=== PATIENT | male | born 1950 | race Caucasian/White ===

== ENCOUNTER 2022-02-10 13:01 | Inpatient (IN) | payer MEDICARE, OTHER, SELFPAY ==
[2022-02-10] VITALS (10 sets, daily range): BP systolic 114–203; BP diastolic 78–124; PULSE 67–76; RESP 12–18; TEMP 36.2–37.4; O2SAT 95–98; BMI 28.7
[2022-02-10 14:09] LABS: Appearance Urine Clear (Clear); Bilirubin Urine 1+ (Negative); Blood Urine Trace-intact (Negative); Color Urine Yellow (Yellow); Glucose Urine Negative (Negative); Ketones Urine 2+ (Negative); Leukocyte Esterase Urine Negative (Negative); Nitrite Urine Negative (Negative); Protein Urine 2+ (Negative); Specific Gravity Urine 1.025 (1.000-1.030)
[2022-02-10] MEDS: 0.9 % SODIUM CHLORIDE 1000 ml 1,000 ML IV ×2 (14:15→23:20)
[2022-02-10] MEDS: KETOROLAC 15 MG/ML inj IVP (14:16)
[2022-02-10] MEDS: MORPHINE 4 MG/ML INJ IVP (14:17)
[2022-02-10] MEDS: ONDANSETRON 2 MG/ML inj 4 MG IVP (14:17)
[2022-02-10 14:18] LABS: Basophils Percent Auto 0.1 % (0.0-3.0); Hemoglobin* 17.8 gm/dL (13.5-17.5); Immature Granulocytes Abs Auto 0.04 K/uL (0.00-0.30); Lymphocytes Percent Auto 4.1 % (20-44); Mean Corpuscular HGB Conc 34 gm/dL (32-36); Mean Corpuscular Hemoglobin 30 pg (26-34); Mean Corpuscular Volume 90 fL (80-100); Monocytes Percent Auto 5.8 % (0.0-11.0); Neutrophils Percent Auto 89.8 % (42.0-72.0); Platelet Count* 312 K/uL (140-440); RDW Coefficient of Variation % 12.2 % (11.5-15.5); Red Blood Count 5.91 m/uL (4.30-5.90); White Blood Count* 17.66 K/uL (4.50-11.00)
[2022-02-10 14:19] LABS: RBC Urine 0-2 (0-2)
[2022-02-10 14:20] LABS: Amorphous Sediment Urine Few; Bacteria Urine Few; Mucus Urine Few; Squamous Epithelial Cell Urine Few (None-Few); WBC Urine 0-2 (0-5)
[2022-02-10 14:21] LABS: Lactate* 2.4 mmol/L (0.5-1.9); Slide Review Reflex No
[2022-02-10 14:39] LABS: Albumin* 4.7 g/dL (3.3-5.0); Chloride* 103 mmol/L (96-114)
[2022-02-10 14:40] LABS: Potassium* 4.2 mmol/L (3.6-5.1); Sodium* 140 mmol/L (135-149)
--- NOTE | 2022-02-10 14:40 | CRLHL7_ITS ---
For Patients: As a result of the Century Cures Act, medical imaging exams and procedure reports are released immediately into your electronic medical record. You may view this report before your referring provider. If you have questions, please contact your health care provider. INDICATION: ab pain, nausea/vomitting, multiple hyperechoic shadowing mobile foci, slightly thickened gb wall, fatty heterogeneous liver limited exam due to gas/body habitus HISTORY: Abdominal pain. Nausea. Vomiting. COMPARISON: None. TECHNIQUE: Ultrasound of the abdomen limited. FINDINGS: The pancreas is normal where visualized. No peripancreatic fluid collections are seen. The IVC and abdominal aorta are normal on grayscale imaging. There is no solid hepatic mass. The liver measures 17.6 cm in length. No perihepatic ascites. No dilation of intrahepatic biliary radicals. Questionable steatosis in the liver. The right kidney measures 11.4 cm in length. There is no hydronephrosis, solid mass, or perinephric fluid collection. Stones in the gallbladder lumen. These appear mobile, with posterior acoustic shadowing. The gallbladder wall measures 5 mm. No sonographic Gomes`s sign. No pericholecystic fluid collection. The common bile duct measures approximately 3 mm. IMPRESSION: 1. Cholelithiasis with mild gallbladder wall thickening. 2. No additional secondary signs for cholecystitis. Negative sonographic Gomes`s sign. No pericholecystic fluid or intramural edema. 3. Normal caliber biliary tree. Dictated by Harshad Chambers MD @ 02/10/2022 5:17:49 PM Dictated by: Harshad Chambers MD @ 02/10/2022 17:17:59 (Electronically Signed)
[2022-02-10 14:42] LABS: Aspartate Amino Transferase* 35 U/L (12-35); Bilirubin Direct* 0.3 mg/dL (0.0-0.5); Bilirubin Total* 1.2 mg/dL (0.1-1.5); Carbon Dioxide* 27 mmol/L (20-32); Est. Creatinine Clearance* 68.94; Estimated Glomerular Filt Rate 80 ml/min; Total Protein* 7.6 g/dL (6.0-8.3)
[2022-02-10 14:43] LABS: Alanine Aminotransferase* 23 U/L (4-50); Alkaline Phosphatase* 120 U/L (40-150); Blood Urea Nitrogen* 15 mg/dL (7-30); Calcium* 9.6 mg/dL (8.4-10.6); Glucose* 179 mg/dL (60-115); Lipase* 60 U/L (23-300)
[2022-02-10 14:45] LABS: C Reactive Protein* 0.6 mg/dL (0.5-1.0)
--- NOTE | 2022-02-10 15:37 | ED.GENADULT ---
HPI - General Adult General Date Seen: 02/10/22 Chief complaint: Abdominal Pain Stated complaint: Abdominal Pain Time Seen by Provider: 02/10/22 13:33 Source: patient History of Present Illness HPI narrative: Patient is a 71-year-old male who presents with abdominal pain and vomiting which awakened him at a about 430 in the morning. His pain is primarily central abdomen although it spreads out a little to either side. He rates it as moderate to severe in intensity. It feels slightly better after he vomits but then comes back. He has not had any diarrhea, in fact he feels he has been a little constipated. No black or bloody stools. Has not vomited any blood. Denies fevers, chest pain, shortness of breath. Has not had any urinary symptoms. He tells me he has had 2 similar episodes over the past several months, but they were brief in duration. One time he just had nausea, 1 time he vomited once, both times the symptoms resolved over an hour or two. This time, pain has persisted and he presents to the emergency department 8 hours or so after the symptoms started. He has not tried any medications at home, and pain has been constant since it started. Related Data Home Medications Medication Instructions Recorded Confirmed No Known Home Medications 02/10/22 02/10/22 Allergies Allergy/AdvReac Type Severity Reaction Status Date / Time No Known Drug Allergies Allergy Verified 02/10/22 13:14 Review of Systems Status of ROS: Reports: 10 or more systems reviewed and unremarkable except as noted in History and below [facility] Social History Smoking Status: Never smoker Do you use any of these nicotine containing products: None How often do you have a drink containing alcohol: 2-3 times a week How often do you have six or more drinks on one occasion: Never AUDIT-C Alcohol total score: 3 Non-prescribed substance use: denies use Exam Narrative: Exam Narrative: Vital signs as noted below. In general, an alert, nontoxic male, looks mildly uncomfortable. Head: Normocephalic, atraumatic. Eyes: Pupils are equal reactive. Extraocular movements are full. Conjunctivae are anicteric. ENT: Mucous membranes are slightly dry. Neck: Supple without lymphadenopathy. Heart: Regular rate and rhythm. No murmur or rub. Lungs: Clear bilaterally. No increased work of breathing, crackles or wheezes. Abdomen: Nondistended. Upper abdominal tenderness, greatest in the right upper quadrant. Diffuse abdominal tenderness less so. Guarding in the right upper quadrant. Remainder of the abdomen soft. Extremities: Well perfused. No edema. No calf tenderness. Pulses intact. Neurologic: Patient is alert and oriented to person and place. Speech is fluent. Face is symmetric. Moves all extremities equally. Affect: Normal. Skin: Warm and dry. Well perfused. Const: Vital Signs, click to edit/add: Vital Signs - 24 hr 02/10/22 13:14 02/10/22 14:14 Temperature 97.1 F L Pulse Rate [Left P ulse Oximeter] 76 67 Respiratory Rate 18 14 Blood Pressure [Ri ght Upper Arm] 203/124 H 198/113 H Pulse Oximetry 98 98 Documenting provider has reviewed patient's vital signs: yes Course Course Hospital Course: Following initial evaluation, an IV was placed and he was given a L of normal saline, 4 mg morphine, 15 mg of Toradol, 4 mg of Zofran Feels improved. [place] [address]. CRP normal. LFTs normal, basic metabolic panel normal aside from a blood sugar of 179. Lactate is mildly elevated at 2.4. Urine is notable for 2+ ketones, bilirubin 1+ but serum bilirubin is normal, this is likely secondary to urine concentration. I did do a bedside ultrasound and he does have gallstones, formal right upper quadrant ultrasound is pending at this time. Diagnostic considerations include bowel obstruction, cholecystitis, appendicitis, diverticulitis, a nephritis, perforated viscus, gastritis, peptic ulcer disease, colitis, mesenteric ischemia, aortic pathology less likely. LFTs and lipase are normal, Formal right upper quadrant ultrasound read as following:IMPRESSION: 1. Cholelithiasis with mild gallbladder wall thickening. 2. No additional secondary signs for cholecystitis. Negative sonographic Gomes`s sign. No pericholecystic fluid or intramural edema. 3. Normal caliber biliary tree. No evidence on ultrasound of choledocholithiasis, lipase and LFTs are reassuring the normal. He has persistent right upper quadrant tenderness on exam however, elevated white blood cell count and history which is suggestive of biliary colic/cholecystitis. I did talk with her surgeon and she recommends admission with cholecystectomy tomorrow. I talked with the hospitalist, patient has had Zofran 3.375 mg IV. He will be admitted to the hospitalist service. Vital Signs Vital signs: Initial Vital Signs Temperature 97.1 F L 02/10/22 13:14 Temperature Source Temporal Artery Scan 02/10/22 13:14 Pulse Rate 76 02/10/22 13:14 Pulse Rhythm 02/10/22 13:14 Respiratory Rate 18 02/10/22 13:14 Blood Pressure 203/124 H 02/10/22 13:14 Blood Pressure Mean 150 02/10/22 13:14 Blood Pressure Position Sitting 02/10/22 13:14 Pulse Oximetry 98 02/10/22 13:14 Oxygen Delivery Method 02/10/22 13:14 Vital Signs Temperature 97.1 F L 02/10/22 13:14 Pulse Rate 76 02/10/22 13:14 Respiratory Rate 18 02/10/22 13:14 Blood Pressure 203/124 H 02/10/22 13:14 Pulse Oximetry 98 02/10/22 13:14 Temperature 97.1 F L 02/10/22 13:14 Pulse Rate 67 02/10/22 14:14 Respiratory Rate 14 02/10/22 14:14 Blood Pressure 198/113 H 02/10/22 14:14 Pulse Oximetry 98 02/10/22 14:14 Medical Decision Making Lab Data Labs: Lab Results 02/10/22 02/10/22 02/10/22 Range/Units 14:00 14:10 14:10 WBC 17.66 H (4.50-11.00) K/uL RBC 5.91 H (4.30-5.90) m/uL Hgb 17.8 H (13.5-17.5) gm/dL Hct 53.0 (37.0-53.0) % MCV 90 (80-100) fL MCH 30 (26-34) pg MCHC 34 (32-36) gm/dL RDW Coeff of Jonah 12.2 (11.5-15.5) % Plt Count 312 (140-440) K/uL Neut % (Auto) 89.8 H (42.0-72.0) % Lymph % (Auto) 4.1 L (20-44) % [place] % (Auto) 5.8 (0.0-11.0) % Eos % (Auto) 0.0 (0.0-7.0) % Baso % (Auto) 0.1 (0.0-3.0) % Neut # (Auto) 15.90 H (1.7-7.0) K/uL Lymph # (Auto) 0.70 L (0.90-2.90) K/uL [place] # (Auto) 1.00 H (0.00-0.90) K/UL Eos # (Auto) 0.00 (0.00-0.50) K/uL Baso # (Auto) 0.00 (0.00-0.30) K/uL Abs Immat Gran (auto) 0.04 (0.00-0.30) K/uL Sodium 140 (135-149) mmol/L Potassium 4.2 (3.6-5.1) mmol/L Chloride 103 (96-114) mmol/L Carbon Dioxide 27 (20-32) mmol/L BUN 15 (7-30) mg/dL Creatinine 1.0 (0.5-1.5) mg/dL Estimated Creat Clear 68.94 Estimated GFR 80 ml/min Glucose 179 H (60-115) mg/dL Lactate (0.5-1.9) mmol/L Calcium 9.6 (8.4-10.6) mg/dL Total Bilirubin 1.2 (0.1-1.5) mg/dL Direct Bilirubin 0.3 (0.0-0.5) mg/dL AST 35 (12-35) U/L ALT 23 (4-50) U/L Alkaline Phosphatase 120 (40-150) U/L C-Reactive Protein 0.6 (0.5-1.0) mg/dL Total Protein 7.6 (6.0-8.3) g/dL Albumin 4.7 (3.3-5.0) g/dL Lipase 60 (23-300) U/L Urine Color Yellow (Yellow) Urine Appearance Clear (Clear) Urine pH 7.0 (5.0-8.5) Ur Specific [place] 1.025 (1.000-1.030) Urine Protein 2+ A (Negative) Urine Glucose (UA) Negative (Negative) Urine Ketones 2+ A (Negative) Urine Blood Trace-intact A (Negative) Urine Nitrite Negative (Negative) Urine Bilirubin 1+ A (Negative) Urine Urobilinogen 1.0 (0.2-1.0) Ur Leukocyte Esterase Negative (Negative) Urine RBC 0-2 (0-2) Urine WBC 0-2 (0-5) Ur Squamous Epith Cells Few (None-Few) Amorphous Sediment Few A (None) Urine Bacteria Few A (None) Urine Mucus Few A (None) 02/10/22 Range/Units 14:10 WBC (4.50-11.00) K/uL RBC (4.30-5.90) m/uL Hgb (13.5-17.5) gm/dL Hct (37.0-53.0) % MCV (80-100) fL MCH (26-34) pg MCHC (32-36) gm/dL RDW Coeff of Jonah (11.5-15.5) % Plt Count (140-440) K/uL Neut % (Auto) (42.0-72.0) % Lymph % (Auto) (20-44) % [place] % (Auto) (0.0-11.0) % Eos % (Auto) (0.0-7.0) % Baso % (Auto) (0.0-3.0) % Neut # (Auto) (1.7-7.0) K/uL Lymph # (Auto) (0.90-2.90) K/uL [place] # (Auto) (0.00-0.90) K/UL Eos # (Auto) (0.00-0.50) K/uL Baso # (Auto) (0.00-0.30) K/uL Abs Immat Gran (auto) (0.00-0.30) K/uL Sodium (135-149) mmol/L Potassium (3.6-5.1) mmol/L Chloride (96-114) mmol/L Carbon Dioxide (20-32) mmol/L BUN (7-30) mg/dL Creatinine (0.5-1.5) mg/dL Estimated Creat Clear Estimated GFR ml/min Glucose (60-115) mg/dL Lactate 2.4 H (0.5-1.9) mmol/L Calcium (8.4-10.6) mg/dL Total Bilirubin (0.1-1.5) mg/dL Direct Bilirubin (0.0-0.5) mg/dL AST (12-35) U/L ALT (4-50) U/L Alkaline Phosphatase (40-150) U/L C-Reactive Protein (0.5-1.0) mg/dL Total Protein (6.0-8.3) g/dL Albumin (3.3-5.0) g/dL Lipase (23-300) U/L Urine Color (Yellow) Urine Appearance (Clear) Urine pH (5.0-8.5) Ur Specific [place] (1.000-1.030) Urine Protein (Negative) Urine Glucose (UA) (Negative) Urine Ketones (Negative) Urine Blood (Negative) Urine Nitrite (Negative) Urine Bilirubin (Negative) Urine Urobilinogen (0.2-1.0) Ur Leukocyte Esterase (Negative) Urine RBC (0-2) Urine WBC (0-5) Ur Squamous Epith Cells (None-Few) Amorphous Sediment (None) Urine Bacteria (None) Urine Mucus (None) Discharge Plan Discharge Prescriptions: No Action No Known Home Medications 0RF Follow Up/Referrals: Juan C Tapia MD [Primary Care Provider] -
[2022-02-10] MEDS: PIPERACILLIN/TAZOBACTAM 3.375 GM in 0.9 % SODIUM CHLORIDE Mini-bag 100 ML IVPB (17:46)
--- NOTE | 2022-02-10 18:39 | W.PC.EDHO ---
Primary Language: Preferred Language: Orientation Status: [x] Alert & Oriented [] Slight Confusion [] Known Dx Dementia Transfers By: [x] Assist of 1 [] Assist of 2 [] Lift Active Medications Discontinued Medications Generic Name Dose Route Start Last Admin Trade Name Agapito PRN Reason Stop Dose Admin Sodium Chloride 1,000 mls @ 1,000 mls/hr 02/10/22 13:45 02/10/22 15:24 0.9 % Sodium Chloride 1000 Ml IV 02/10/22 14:44 Infused .Q1H DAVI Infusion Piperacillin Sod/Tazobactam 100 mls @ 100 mls/hr 02/10/22 17:30 02/10/22 17:46 Sod 3.375 gm/ Sodium Chloride IVPB 02/10/22 17:31 100 mls/hr ONCE ONE Administration Ketorolac Tromethamine 15 mg 02/10/22 13:41 02/10/22 14:16 Ketorolac 15 Mg/Ml Inj IVP 02/10/22 13:42 15 mg ONCE ONE Administration Morphine Sulfate 4 mg 02/10/22 13:41 02/10/22 14:17 Morphine 4 Mg/Ml Inj IVP 02/10/22 13:42 4 mg ONCE ONE Administration Ondansetron HCl 4 mg 02/10/22 13:41 02/10/22 14:17 Ondansetron 2 Mg/Ml Inj IVP 02/10/22 13:42 4 mg ONCE ONE Administration Description of Symptoms ED Triage Present Problem mid to low abd pain x 18 hours some vomiting, no Description diarrhea, no fevers. Female History Patient No Pain Pain Description [lower Burning abdomen] Pain Intensity [lower abdomen] 2 Pain Intensity 2 Pain Intensity 2 Pain Intensity 2 Pain Intensity 2 Pain Intensity 2 Pain Intensity 2 Pain Intensity 2 Pain Intensity 7 Pain Intensity 7 Pain Intensity 8 Pain Scale Used [lower abdomen Numeric (1 - 10) ] Pain Scale Used Numeric (1 - 10) Pain Scale Used Numeric (1 - 10) Pain Scale Used Numeric (1 - 10) Pain Scale Used Numeric (1 - 10) Pain Scale Used Numeric (1 - 10) Pain Scale Used Numeric (1 - 10) Pain Scale Used Numeric (1 - 10) Pain Scale Used Numeric (1 - 10) Pain Scale Used Numeric (1 - 10) Pain Scale Used Numeric (1 - 10) IV Insertion/Site Date of IV Line Insertion [ 02/10/22 left anticubital] Oxygen Administration Pulse Oximetry 98 Pulse Oximetry 98 Oxygen Delivery Method Room Air Oxygen Delivery Method Room Air Cardiac Monitoring EKG Method 12 Lead
[2022-02-10 18:46] LABS: SARS PCR* Negative SARS-CoV-2 (Negative)
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
[2022-02-10] MEDS: AMLODIPINE 10 MG TABLET PO (20:28)
[2022-02-10] MEDS: ONDANSETRON ODT 4 MG TAB PO (20:28)
[2022-02-10 20:55] LABS: Lactate* 2.3 mmol/L (0.5-1.9)
[2022-02-10] MEDS: LACTATED RINGERS 1000 ML 500 ML IV (22:38)
[2022-02-11] VITALS (15 sets, daily range): BP systolic 75–138; BP diastolic 50–81; PULSE 67–86; RESP 18–20; TEMP 36.4–37.1; O2SAT 90–98
[2022-02-11] MEDS: PIPERACILLIN/TAZOBACTAM 3.375 GM in 0.9 % SODIUM CHLORIDE Mini-bag 100 ML IVPB ×2 (00:20→06:40)
[2022-02-11] MEDS: LACTATED RINGERS 1000 ML 1,000 ML 125 ML IV (01:13)
[2022-02-11 06:27] LABS: Basophils Percent Auto 0.1 % (0.0-3.0); Eosinophils Percent Auto 0.2 % (0.0-7.0); Hemoglobin* 16.3 gm/dL (13.5-17.5); Immature Granulocytes Abs Auto 0.03 K/uL (0.00-0.30); Lymphocytes Percent Auto 9.6 % (20-44); Mean Corpuscular HGB Conc 33 gm/dL (32-36); Mean Corpuscular Hemoglobin 30 pg (26-34); Mean Corpuscular Volume 91 fL (80-100); Monocytes Percent Auto 10.8 % (0.0-11.0); Neutrophils Percent Auto 79.1 % (42.0-72.0); Platelet Count* 251 K/uL (140-440); RDW Coefficient of Variation % 12.3 % (11.5-15.5); Red Blood Count 5.38 m/uL (4.30-5.90); White Blood Count* 16.75 K/uL (4.50-11.00)
[2022-02-11 06:29] LABS: Slide Review Reflex No
[2022-02-11 06:34] LABS: Albumin* 3.7 g/dL (3.3-5.0); Chloride* 106 mmol/L (96-114); Potassium* 4.1 mmol/L (3.6-5.1); Sodium* 135 mmol/L (135-149)
[2022-02-11 06:36] LABS: Creatinine* 1.1 mg/dL (0.5-1.5); Est. Creatinine Clearance* 62.68; Estimated Glomerular Filt Rate 71 ml/min
[2022-02-11 06:37] LABS: Alanine Aminotransferase* 30 U/L (4-50); Alkaline Phosphatase* 87 U/L (40-150); Aspartate Amino Transferase* 40 U/L (12-35); Blood Urea Nitrogen* 12 mg/dL (7-30); Carbon Dioxide* 25 mmol/L (20-32); Glucose* 142 mg/dL (60-115); Total Protein* 6.2 g/dL (6.0-8.3)
[2022-02-11 06:38] LABS: Calcium* 8.4 mg/dL (8.4-10.6)
--- NOTE | 2022-02-11 06:46 | PC.NURSE ---
Addendum entered by Maile Benjamin RN 02/11/22 08:02: [employer] agrees with documentation and cares of pt by above internal communications writer. Original Note: [id number] pt arrived to unit at 1920 from ED following episode of N,V, with abdominal pain. Dx cholecystitis. IV patent, CDI left AC. One dose of zofran given per pt request. Blood pressure on admission was 156-185/107-112. Order of amlodipine 10mg once followed by 5mg daily starting 02/10. BP this morning 138/81. All other vitals stable, pt AxO x3, declined any meds for abdominal pain. Score 3/10. Pt has a right lower leg prosthetic that pt removes by self, walks independently. NPO after midnight for surgery at 0702/11 for removal of gall stones.
[2022-02-11 06:57] LABS: C Reactive Protein* 12.9 mg/dL (0.5-1.0)
--- NOTE | 2022-02-11 07:19 | P.GSCN_ITS ---
History of Present Illness Consult details Consult date: 02/11/22 Narrative: 71-year-old male presented to emergency room with crampy abdominal pain that was located in periumbilical region and just above it. Patient states that the pain woke him up at night at 4 in the morning to yesterday. Patient had multiple episodes of vomiting. He had 2 similar episodes of pain in the last 3 months. Those episodes were related to ED fatty food. Patient also felt like he was constipated. His last bowel movement was on Saturday. In the emergency room he was found to have an elevated WBC of 17.6. His liver function tests and lipase were normal. An abdominal ultrasound was obtained that showed cholelithiasis with gallbladder wall of 5 mm thick. His common bile duct was 3 mm. Review of Systems Narrative: General: no fevers HENT: no problems swallowing CV: no shortness of breath Resp: no cough GI: see above Skin: no new rashes Musculoskeletal: no back pain Neuro: patient wear left BKA prosthesis Psyche: no depression, no anxiety PFSH PFSH Medical History (Updated 02/11/22 @ 07:20 by Samantha Rain MD) Basal cell carcinoma Cataract History of left below knee amputation Hypertension Surgical History (Updated 02/11/22 @ 07:20 by Samantha Rain MD) S/P BKA (below knee amputation) unilateral Social History (Updated 02/11/22 @ 07:21 by Samantha Rain MD) Narrative: Patient denies smoking. He lives with his daughter and her family. Highest level of school completed/degree received: Associate degree: occupational, technical, vocational program Smoking Status: Never smoker Do you use any of these nicotine containing products: None Second hand tobacco smoke exposure: Yes (year ) How often do you have a drink containing alcohol: 2-3 times a week Alcohol type: beer, wine and hard liquor How often do you have six or more drinks on one occasion: Never AUDIT-C Alcohol total score: 3 Non-prescribed substance use: denies use Caffeine: Yes (ice tea) service: Yes Meds Home Medications and Allergies Allergies Allergy/AdvReac Type Severity Reaction Status Date / Time cefazolin AdvReac Intermediate Verified 02/11/22 07:44 metronidazole AdvReac Intermediate Verified 02/11/22 07:45 Exam Narrative: Exam Narrative: General appearance: Alert, cooperative, and in no distress Pulmonary: Chest symmetric, lungs clear bilaterally Cardiovascular Heart: Regular rate and rhythm, S1, S2, no murmurs/rubs/gallops Gastrointestinal Abdominal: soft, not distended, tender to palpation in epigastrium and medial right upper quadrant with involuntary guarding. Negative Gomes sign. Skin: Normal skin color, texture, and turgor. No rashes or lesions. Psychiatric: Alert, cooperative, normal affect. Const: Vital Signs, click to edit/add: Vital Signs - 24 hr 02/10/22 13:14 02/10/22 14:14 02/10/22 17:00 Temperature 97.1 F L Pulse Rate [Left P ulse Oximeter] 76 67 69 Pulse Rate [Right Pulse Oximeter] Respiratory Rate 18 14 14 Blood Pressure [Le ft Arm] Blood Pressure [Ri ght Arm] Blood Pressure [Ri ght Upper Arm] 203/124 H 198/113 H 114/78 Pulse Oximetry 98 98 95 02/10/22 17:30 02/10/22 18:00 02/10/22 18:30 Temperature Pulse Rate [Left P ulse Oximeter] 72 71 73 Pulse Rate [Right Pulse Oximeter] Respiratory Rate 14 18 18 Blood Pressure [Le ft Arm] Blood Pressure [Ri ght Arm] Blood Pressure [Ri ght Upper Arm] 182/106 H 193/119 H 159/90 H Pulse Oximetry 98 98 97 02/10/22 19:00 02/10/22 19:23 02/10/22 19:38 Temperature 99.4 F 99.4 F Pulse Rate [Left P ulse Oximeter] 70 Pulse Rate [Right Pulse Oximeter] 76 76 Respiratory Rate 18 18 18 Blood Pressure [Le ft Arm] 176/107 H 176/107 H Blood Pressure [Ri ght Arm] Blood Pressure [Ri ght Upper Arm] 159/84 H Pulse Oximetry 97 97 97 02/10/22 23:00 02/11/22 03:00 Temperature 98.7 F Pulse Rate [Left P ulse Oximeter] Pulse Rate [Right Pulse Oximeter] 72 76 Respiratory Rate 12 Blood Pressure [Le ft Arm] 156/92 H Blood Pressure [Ri ght Arm] 138/81 Blood Pressure [Ri ght Upper Arm] Pulse Oximetry 97 97 Results Labs Labs: Abnormal lab results 02/10/22 02/10/22 02/10/22 Range/Units 14:00 14:10 14:10 WBC 17.66 H (4.50-11.00) K/uL RBC 5.91 H (4.30-5.90) m/uL Hgb 17.8 H (13.5-17.5) gm/dL Neut % (Auto) 89.8 H (42.0-72.0) % Lymph % (Auto) 4.1 L (20-44) % Neut # (Auto) 15.90 H (1.7-7.0) K/uL Lymph # (Auto) 0.70 L (0.90-2.90) K/uL [place] # (Auto) 1.00 H (0.00-0.90) K/UL Glucose 179 H (60-115) mg/dL Lactate (0.5-1.9) mmol/L Total Bilirubin (0.1-1.5) mg/dL AST (12-35) U/L C-Reactive Protein (0.5-1.0) mg/dL Urine Protein 2+ A (Negative) Urine Ketones 2+ A (Negative) Urine Blood Trace-intact A (Negative) Urine Bilirubin 1+ A (Negative) Amorphous Sediment Few A (None) Urine Bacteria Few A (None) Urine Mucus Few A (None) 02/10/22 02/10/22 02/11/22 Range/Units 14:10 20:50 06:05 WBC 16.75 H (4.50-11.00) K/uL RBC (4.30-5.90) m/uL Hgb (13.5-17.5) gm/dL Neut % (Auto) 79.1 H (42.0-72.0) % Lymph % (Auto) 9.6 L (20-44) % Neut # (Auto) 13.20 H (1.7-7.0) K/uL Lymph # (Auto) (0.90-2.90) K/uL [place] # (Auto) 1.80 H (0.00-0.90) K/UL Glucose (60-115) mg/dL Lactate 2.4 H 2.3 H (0.5-1.9) mmol/L Total Bilirubin (0.1-1.5) mg/dL AST (12-35) U/L C-Reactive Protein (0.5-1.0) mg/dL Urine Protein (Negative) Urine Ketones (Negative) Urine Blood (Negative) Urine Bilirubin (Negative) Amorphous Sediment (None) Urine Bacteria (None) Urine Mucus (None) 02/11/22 Range/Units 06:05 WBC (4.50-11.00) K/uL RBC (4.30-5.90) m/uL Hgb (13.5-17.5) gm/dL Neut % (Auto) (42.0-72.0) % Lymph % (Auto) (20-44) % Neut # (Auto) (1.7-7.0) K/uL Lymph # (Auto) (0.90-2.90) K/uL [place] # (Auto) (0.00-0.90) K/UL Glucose 142 H (60-115) mg/dL Lactate (0.5-1.9) mmol/L Total Bilirubin 2.1 H (0.1-1.5) mg/dL AST 40 H (12-35) U/L C-Reactive Protein 12.9 H (0.5-1.0) mg/dL Urine Protein (Negative) Urine Ketones (Negative) Urine Blood (Negative) Urine Bilirubin (Negative) Amorphous Sediment (None) Urine Bacteria (None) Urine Mucus (None) Diabetes panel 02/10/22 02/11/22 Range/Units 14:10 06:05 Sodium 140 135 (135-149) mmol/L Potassium 4.2 4.1 (3.6-5.1) mmol/L Chloride 103 106 (96-114) mmol/L Carbon Dioxide 27 25 (20-32) mmol/L BUN 15 12 (7-30) mg/dL Creatinine 1.0 1.1 (0.5-1.5) mg/dL Glucose 179 H 142 H (60-115) mg/dL Calcium 9.6 8.4 (8.4-10.6) mg/dL AST 35 40 H (12-35) U/L ALT 23 30 (4-50) U/L Alkaline Phosphatase 120 87 (40-150) U/L Total Protein 7.6 6.2 (6.0-8.3) g/dL Albumin 4.7 3.7 (3.3-5.0) g/dL Calcium panel 02/10/22 02/11/22 Range/Units 14:10 06:05 Calcium 9.6 8.4 (8.4-10.6) mg/dL Albumin 4.7 3.7 (3.3-5.0) g/dL Pituitary panel 02/10/22 02/11/22 Range/Units 14:10 06:05 Sodium 140 135 (135-149) mmol/L Potassium 4.2 4.1 (3.6-5.1) mmol/L Chloride 103 106 (96-114) mmol/L Carbon Dioxide 27 25 (20-32) mmol/L BUN 15 12 (7-30) mg/dL Creatinine 1.0 1.1 (0.5-1.5) mg/dL Glucose 179 H 142 H (60-115) mg/dL Calcium 9.6 8.4 (8.4-10.6) mg/dL Adrenal panel 02/10/22 02/11/22 Range/Units 14:10 06:05 Sodium 140 135 (135-149) mmol/L Potassium 4.2 4.1 (3.6-5.1) mmol/L Chloride 103 106 (96-114) mmol/L Carbon Dioxide 27 25 (20-32) mmol/L BUN 15 12 (7-30) mg/dL Creatinine 1.0 1.1 (0.5-1.5) mg/dL Glucose 179 H 142 H (60-115) mg/dL Calcium 9.6 8.4 (8.4-10.6) mg/dL Total Bilirubin 1.2 2.1 H (0.1-1.5) mg/dL AST 35 40 H (12-35) U/L ALT 23 30 (4-50) U/L Alkaline Phosphatase 120 87 (40-150) U/L Total Protein 7.6 6.2 (6.0-8.3) g/dL Albumin 4.7 3.7 (3.3-5.0) g/dL All other labs normal. Imaging Abdominal ultrasound report/results: report reviewed and image reviewed Assessment and Plan Assessment and plan (1) Cholecystitis, acute with cholelithiasis: Status: Acute Plan 71-year-old male presents with abdominal pain that is most likely due to acute cholecystitis. I discussed with the patient his laboratory and imaging findings. Patient's WBC was elevated to 17 and remains elevated today. His ultrasound showed gallbladder wall thickening. On clinical exam patient has tenderness to palpation in epigastrium and right upper quadrant with involuntary guarding which is also suggestive of acute cholecystitis. I recommended to proceed with laparoscopic cholecystectomy. Patient's indirect bilirubin was elevated but his regular been was normal which indicates that it is unlikely that he has choledocholithiasis. The risks of procedure including infection, bleeding, injury to intra-abdominal organs, injury to the common bile duct, and exposure to COVID-19 were all discussed with the patient, and he agreed to proceed.
[2022-02-11] MEDS: LACTATED RINGERS 1000 ML 1,000 ML 100 ML IV (07:30)
--- NOTE | 2022-02-11 07:35 | PM.GSPRC ---
Operative Note Date of procedure: 02/11/22 Type of Procedure: 1. Laparoscopic cholecystectomy. Procedure Description: After discussing the risks and benefits of the procedure, the patient signed informed consent.? The operative site was marked and the patient was brought to the operating room and placed on the operating table in supine position.? Care was taken to pad the patient's pressure points.?? The patient was then intubated by anesthesia.?? The operative site was then prepped and draped in the usual sterile fashion.? A time-out was then performed. A 5-mm laparoscopy port was placed in the left upper quadrant guided by a 5-mm laparoscope placed into a translucent trochar.~ Passage through the layers of the abdominal wall was visualized with the laparoscope.~ A pneumoperitoneum was established. A 0-degree 5-mm laparoscope was advanced into the abdomen. The abdomen was briefly surveyed, and no adhesions were noted. A 10-mm port were placed infraumbilically and two more 5 mm ports were placed on the right under direct visualization by laparoscope. The camera was then changed to 10 mm 30-degree scope and placed into the abdomen through the 10 mm port. The left upper quadrant port entrance was examined and no injury to intra-abdominal organs was identified. Omentum was overlying the gallbladder. The omentum was retracted and gallbladder was identified. The fundus of the gallbladder had patchy necrosis. Edema was noted in the gregory hepaticus with some dark green staining. This was concerning for possible necrotic tissue near the cystic duct. The gallbladder was taut and I had to drain bile with a laparoscopic needle and a 60 mL syringe in order to grasp the gallbladder fundus. The gallbladder fundus was retracted cephalad. Omentum was dissected off the gallbladder with suction tip. The infundibulum was grasped and retracted laterally. The peritoneum and inflammation overlying triangle of Calot was severe, and tedious dissection was done bluntly and with hook cautery to identify a small cystic artery. Edema was noted in the gallbladder wall. Common bile duct was not identified but care was taken not to injure it. The cystic duct was circumferentially dissected from the adjacent tissues with hook cautery and bluntly. Small vascular branches were clipped with 5 mm clips to avoid bleeding in this difficult dissection. I stayed up on the gallbladder near the infundibulum to avoid injury to the common bile duct. With blunt dissection with the [place] in the posterior cystic duct small amount of bile was noted. This was most likely because the gallbladder wall had patchy necrosis and was extremely thin and fragile. The cystic duct was clearly going into the gallbladder and was dissected circumferentially. However since I was staying up close to the infundibulum, I was not able to clip it with 5 mm clip chief dog license inspector. We then used a 10 mm clip chief dog license inspector that was advanced through the infraumbilical incision. In order to do that the camera was switched to a 5 mm scope and advanced into the abdomen through the left upper quadrant incision. The cystic duct was clipped with a single clip on the patient's side however it was difficult to see if it went across the entire clip. A single clip was placed on the gallbladder on the specimen side and that did not go across the gallbladder wall. I then elected to tie the cystic duct with 0-0 Vicryl stitch using laparoscopic knot pusher. A single vicryl suture was placed just distal to the cystic duct clip and a single suture was placed on the gallbladder just above the gallbladder clip. The Vicryl suture on the patient's side was somewhat loose. The cystic duct was then divided between the clips. The cystic duct stump was grasped with [place] grasper and an additional 0-0 Vicryl endoloop suture was placed just distal to the cystic duct clip. This was tightened gently to avoid transecting the fragile cystic duct. The gallbladder was dissected from the liver bed in retrograde fashion using hookcautery. Posterior gallbladder wall had significant patchy necrosis. The gallbladder was placed into an Endo-Catch bag and removed through the infraumbilical incision. Surgical site was examined for bleeding. Bleeding from the mid gallbladder fossa was controlled with hook cautery. No bleeding was identified near the common bile duct and cystic duct stump. I then elected to place a 15 [place] round [place] drain. This was advanced into the abdomen through the inferior 5 mm port. The port was then removed. The drain was placed into subhepatic space. The drain was secured in place with nylon suture at the level of the skin. The fascia of the infraumbilical incision was then closed with 0-0 vicryl sutures using Cade Linnea needle under direct visualization. Pneumoperitoneum was completely reduced after viewing removal of the trocars under direct vision. The skin was then closed with 4-0 monocryl and steristrips were applied. Instrument, sponge, and needle counts were correct at closure and at the conclusion of the case. The patient was transferred to PACU in stable condition. ? Findings: Necrotic gallbladder with significant inflammation. Anesthesia: GETA Surgeon: Samantha Rain MD Estimated blood loss (mL): 15 Condition: stable Disposition: PACU
[2022-02-11 07:44] LABS: Bilirubin Direct* 0.5 mg/dL (0.0-0.5)
[2022-02-11] MEDS: KETOROLAC 15 MG/ML inj IVP (08:28)
[2022-02-11] MEDS: BUPIVACAINE 0.5% 30 ML INJECTION (08:58)
[2022-02-11] MEDS: PHENYLEPHRINE 100 MCG/ML SYRINGE IVP (10:27)
--- NOTE | 2022-02-11 10:27 | REH.PT ---
PT: PT eval deferred to tomorrow as pt was in surgery this morning and unable to do evaluation. Will assess tomorrow.
--- NOTE | 2022-02-11 12:47 | REH.OT ---
Per nursing, patient will be discharging home today. No PT/OT assessments warranted.
--- NOTE | 2022-02-11 16:46 | PC.NURSE ---
Patient able to tolerate a regular diet. Denies nausea. Rating pain at a 2/10 in his abdomen. Denied the need for any pain medication at this time. Lap sites x3 are intact with minimal bloody drainage. Band-aid placed over umbilical site due to bleeding. Voiding. Education offered to patient about TAM care/maintenance and emptying. Daughter present for this training. All questions were answered. Discharge instructions were given. Saline lock removed. TAM dressing changed before patient discharged. Escorted to front entrance via wheelchair to discharge.
--- NOTE | 2022-02-12 07:28 | PM.DS1 ---
DS: Providers Provider Date of admission: 02/10/22 19:18 Primary care physician: Juan C Tapia MD Admitting Clinician: Ronny Haque MD Consults: 02/10/22 20:20 Consult to Occupational Therapy [CONS] Routine Comment: Reason(s) for OT Consult:: Evaluate and Treat Any Restrictions?:: No Restrictions Comment: Lalitha FLOOD and will have lap cholecystectomy on 02/11/2022 Consult to Physical Therapy [CONS] Routine Comment: Reason(s) for PT Consult:: Evaluate and Treat Any Restrictions?:: No Restrictions Comment: Lalitha FLOOD and will have lap cholecystectomy on 02/11/2022 Consult to Physician [CONS] Routine Comment: Consulting Provider: Samantha Rain Has provider been notified: Yes Attending Physician on discharge: Samantha Rain MD Date of Discharge: 02/11/22 DS: Diagnosis Discharge Diagnosis (1) Cholecystitis, acute with cholelithiasis: Status: Acute DS: Summary Hospital Course Hospital Course: Patient was admitted to the hospital with acute cholecystitis. He underwent laparoscopic cholecystectomy. Intraoperatively he was found have necrotic and fragile gallbladder. Cholecystectomy was completed and a subhepatic drain was placed. Postoperatively patient was doing well and was discharged home with the drain in place. Time Spent with Patient Time attestation: Total time spent providing and/or coordinating discharge services: Exam Narrative: Exam Narrative: Not personally examined prior to discharge. Const: Vital Signs, click to edit/add: Vital Signs - 24 hr 02/11/22 09:58 02/11/22 10:02 02/11/22 10:17 Temperature 97.9 F Pulse Rate 86 78 80 Respiratory Rate 20 18 18 Blood Pressure 75/50 L 105/58 L 87/59 L Blood Pressure [Ri ght Arm] Pulse Oximetry 90 94 95 02/11/22 10:25 02/11/22 10:30 02/11/22 10:35 Temperature Pulse Rate 78 68 72 Respiratory Rate 18 18 20 Blood Pressure 90/53 L 89/55 L 94/56 L Blood Pressure [Ri ght Arm] Pulse Oximetry 96 98 98 02/11/22 10:42 02/11/22 10:45 02/11/22 11:00 Temperature 98.1 F 97.6 F Pulse Rate 72 67 Respiratory Rate 20 20 20 Blood Pressure 100/62 Blood Pressure [Ri ght Arm] 89/53 L 98/54 L Pulse Oximetry 98 93 02/11/22 11:15 02/11/22 11:30 02/11/22 12:00 Temperature 97.9 F 98.3 F Pulse Rate Respiratory Rate 18 18 18 Blood Pressure Blood Pressure [Ri ght Arm] 102/70 94/65 91/63 Pulse Oximetry 95 93 93 02/11/22 12:30 02/11/22 13:00 Temperature Pulse Rate Respiratory Rate 18 18 Blood Pressure Blood Pressure [Ri ght Arm] 92/67 93/68 Pulse Oximetry 93 93 DS: Data Data Completed and Pending Labs on day of discharge: Labs from last 24 hours 02/11/22 02/11/22 02/11/22 09:10 06:05 06:05 Hemoglobin A1c 5.50 Total Bilirubin 2.0 H Direct Bilirubin 0.5 Surg PTH (Off-Site) Pending Preliminary micro results at discharge 02/10/22 14:00 Urine Culture - Preliminary Urine,Clean Catch NO GROWTH AFTER 24 HOURS Discharge Plan Discharge Disposition: Home, Self-Care Date of Admission: 02/10/22 19:18 Attending Provider on Discharge: Samantha Rain Consulting Providers: Samantha Rain Primary Care Provider: Juan C Tapia Condition: Improved Anticipated Discharge Date/Time: 02/11/22 14:08 Discharge Medications: New hydrocodone-acetaminophen 5-325 mg tablet 1 - 2 tab PO Q6H PRN (Reason: pain) Qty: 25 0RF polyethylene glycol 3350 [Miralax] 17 gram powder in packet 17 g PO DAILY Qty: 30 0RF senna 8.6 mg capsule 8.6 mg PO BID Qty: 10 0RF Discharge Orders: Discharge Order (Routine); Ordered 02/11/22 Ordered By: Smaantha Rain Patient Education: Acetaminophen (By mouth), Hydrocodone/Acetaminophen (By mouth), Laxative, Stimulant (By mouth), Amlodipine (By mouth), Polyethylene Glycol 3350 (By mouth), Patrick-Ron Drain Care (DC), General Anesthesia (DC), Laparoscopic Cholecystectomy (DC), Post-Operative Instructions: Laparoscopic Cholecystectomy Activity Level: No strenuous activity Activity Detail: No strenuous activity or lifting more than 15-20 lbs for 4-6 weeks. Discharge Diet: Regular Follow Up Appointments: Samantha Rain MD [Staff Physician] - (Follow up appointment at [facility] on February 15 at 3:45pm.) Forms: [facility] Info Instructions Discharge Comment: please teach drain cares to patient.
--- NOTE | 2022-03-01 11:06 | W.ANESCHARGE ---
Anesthesia Charges Start Date/Time Anesthesia Start Date: 02/11/22 Anesthesia Start Time: 07:30 Stop Date/Time Anesthesia Stop Date: 02/11/22 Anesthesia Stop Time: 10:04 Summary Emergency: Yes Extremes of Age: Over 69-CPT 32944
== END 2022-02-11 14:50 | disposition home or self-care (01) | DRG 413 ==
LOC: ED 15:39 → SS 18:40 → MEDSURG 18:41 → SS 20:09 → MEDSURG 20:09
PROVIDERS: Admitting Provider Internal Medicine; Emergency Provider Emergency Medicine; PCP Family Medicine; Visit Provider Surgery
PROC: 0FT44ZZ Resection of Gallbladder, Percutaneous Endoscopic Approach (ICD-10-PCS; CPT 47562; principal; 2022-02-11 07:30)
DX: K80.00 Calculus of gallbladder with acute cholecystitis without obstruction (principal); K82.A1 Gangrene of gallbladder in cholecystitis; I10 Essential (primary) hypertension; E86.0 Dehydration; R73.9 Hyperglycemia, unspecified; D72.829 Elevated white blood cell count, unspecified; D75.1 Secondary polycythemia; Z89.512 Acquired absence of left leg below knee; Z85.828 Personal history of other malignant neoplasm of skin
CPT/HCPCS: 00790; 36415; 76705; 80048; 80053; 80076; 81001; 82248; 83036; 83605; 83690; 85025; 86140; 87086; 87635; 88304; 93005; 99100; 99140; 99284; A9270; J0330; J1100; J1885; J2270; J2370; J2405; J2543; J2704; J3010; J3490; J7030; J7120

== ENCOUNTER 2023-07-11 05:59 | Emergency (ER) | payer MEDICARE, OTHER, SELFPAY ==
[2023-07-11 06:06] VITALS: BP 165/78; PULSE 73; RESP 18; TEMP 36.7; O2SAT 99; BMI 28.7
--- NOTE | 2023-07-11 06:20 | CRLHL7_ITS ---
For Patients: As a result of the Century Cures Act, medical imaging exams and procedure reports are released immediately into your electronic medical record. You may view this report before your referring provider. If you have questions, please contact your health care provider. Indication: Left thigh pain. History of BKA. Technique: Grayscale, grayscale compression and Doppler technique was utilized to evaluate the left lower extremity venous system. Comparison: None Findings: There is no evidence of deep venous thrombosis. The distal most remaining vein is the popliteal vein. While not a formal arterial study, there is minimal flow in the left common femoral artery. Consider a formal arterial study. Impression: 1. No evidence of deep venous thrombosis in the left lower extremity. There has been a BKA. 2. While not a formal arterial study, there is minimal flow in the left common femoral artery. Consider a formal arterial study in this patient with a symptomatic left thigh Dictated by Chin Story MD @ 07/11/2023 7:55:06 AM (Electronically Signed)
[2023-07-11 06:25] VITALS: TEMP 36.7
[2023-07-11] MEDS: KETOROLAC 10 MG TABLET PO (06:25)
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
[2023-07-11 08:15] VITALS: BP 162/108; PULSE 67; RESP 16; O2SAT 96
== END 2023-07-11 08:20 | disposition home or self-care (01) ==
PROVIDERS: Emergency Provider Family Medicine; PCP Family Medicine
DX: M79.652 Pain in left thigh (principal); I73.9 Peripheral vascular disease, unspecified
CPT/HCPCS: 76882; 95992; 99284; A9270

== ENCOUNTER 2024-12-30 19:36 | Emergency (ER) | payer MEDICARE, OTHER, SELFPAY ==
--- OUTSIDE RECORDS SUMMARY | 2024-08-28 09:00 | XMS_ITS | Encounter Summary ---
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 Date/Time Encounter Type Encounter Description Reason Provider Source Aug 28, 2024 02:00 PM OFFICE O/P NEW MOD 45 MIN PRIMARY CARE/MEDICINE ICD-10-CM I73.9 Peripheral vascular disease, unspecified CATARINO MASTERS [place] Encounter Template Text not used by [place] Assessments - Encounter Diagnoses This section includes the primary and secondary diagnoses documented for the Encounter. Date/Time Primary/Secondary Diagnosis Diagnosis Name Provider Source Aug 28, 2024 03:33 PM PRIMARY Peripheral vascular disease, unspecified CATARINO MASTERS [facility] Aug 28, 2024 03:33 PM SECONDARY Contact with and exposure to other hazardous substances CTAARINO MASTERS [facility] Aug 28, 2024 03:33 PM SECONDARY Essential (primary) hypertension CATARINO MASTERS [facility] Aug 28, 2024 03:33 PM SECONDARY Hyperlipidemia, unspecified CATARINO MASTERS [facility] Plan of Treatment: Future Appointments (+ 6 months) and Future Tests (+/- 45 days) The Plan of Treatment section includes future care activities for the patient from all [place] treatmentfacilities. This section includes future appointments and future orders which are active, pending or scheduled. Future Appointments This section includes appointments that were scheduled to occur 6 months from the date of the Encounter, up to a maximum of 20 appointments. The data comes from all [place] treatment facilities. Appointment Date/Time Appointment Type Appointme nt Facility Name Sep 04, 2024 03:15 PM AMBULATORY - MEDICINE [facility] Vital Signs: All taken on the encounter date This section contains inpatient and outpatient Vital Signs collected on the date of the Encounter. Date/Time Temperature Pulse Blood Pressure Respiratory Rate SP02 Pain Height Weight Body Mass Index Source Aug 28, 2024 02:14 PM 97.6 67 122/74 16 97 0 69.5 207.6 30 [facility] Social History: Smoking Status (Most current) and Tobacco Use (All prior to encounter date) This section includes the most current, and the historical, smoking and tobacco- related health factors from the [place] facility where the Encounter took place. Current Smoking Status This section includes the most current smoking, or tobacco-related health factor, from the [place] facility where the Encounter took place. Date/Time Current Smoking Status Comment Karen ity Aug 28, 2024 02:00 PM [place]-TOBACCO NEVER USED CIGARETTES [facility] Tobacco Use History This section includes a history of the smoking, or tobacco-related health factors, that were collected on or before the date of the Encounter. The data comes from the [place] facility where the Encounter took place. Date/Time Smoking Status/Tobacco Use Comment F acility Aug 28, 2024 02:00 PM [place]-TOBACCO NEVER USED OTHER TYPE [facility] Advance Directives: All historical and current Section Date Range: From patient's date of to the date document was created. This section includes ALL of a patient's completed or amended [place] Advance and Rescinded Directives. The entries below indicate that a directive exists for the patient, but an actual copy is not included with this document. The data comes from all [facility]. Date Advance Directives Provider Source Sep 08, 2024 ADVANCE DIRECTIVE MISTY DELGADILLO [facility] Sep 08, 2024 ADVANCE DIRECTIVE DISCUSSION JOANIE DELGADILLO [facility] Encounter Notes: All associated encounter notes This section contains the clinical notes associated to the Encounter. Date/Time Encounter Note(s) Provider Source Aug 28, 2024 02:43 PM INTERNAL MEDICINE NOTE: LOCAL TITLE: MEDICINE CLINIC NOTE STANDARD TITLE: INTERNAL MEDICINE NOTE DATE OF NOTE: AUG 28, 2024@14:43 ENTRY DATE: AUG 28, 2024@14:43:40 AUTHOR: CATARINO MASTERS EXP COSIGNER: URGENCY: STATUS: COMPLETED Nurse's Notes Reviewed. Chief Complaint: Establish care HPI: patient is 74yo male hx of PVD, HLD, HTN. Get cares at [facility] which he plans to continue. he has been experiencing left stump pain since 2022. 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 The right superficial femoral artery is patent. [facility] is recommending [facility]ter[facility] no other concerns he [facility] through [facility] copy paste kandis report 07/2024 per [facility] record Conclusions 1. Right lower extremity: Normal ankle-brachial indices and Doppler signals. Normal toe brachial index. TcPO2 values are moderately reduced for the proximal foot and normal for the distal foot. 2. Left lower extremity: Below-knee amputation. Peripheral arterial disease by Doppler signals at the ilio-femoral level. TcPO2 values are mildly reduced above the knee and normal to mildly reduced [id number]. 3. Compared to the previous study (07/15/2023), TcPO2 values are now moderately reduced for the right proximal foot. Past medical history/Active Problems: Active Problems: Active problems - Computerized Problem List is the source for the followin. Peripheral vascular disease 2. Amputated below knee - LEFT 3. Hyperlipidemia ([facility] [id number]) 4. HTN - Hypertension ([facility] [id number]) 5. Basal cell carcinoma of nose Tobacco/ETOH Use: No tobacco use Alcohol Use: Does drink though not concerning for abuse. Review of Systems: Feels well, no weight loss, good appetite. No Chest Pain. No Shortness of breath. No orthopnea, PND, or peripheral edema. No abdominal pain, N/V, or change in bowel habits. No diarrhea or constipation. No Bleeding. No urinary hesitancy or frequency. Family History:mother dm sister- dm brother dm, obesity (), lucas Social History:single, stable housing retired Tobacco/ETOH Use: No tobacco use Review of Systems: Feels well, no weight loss, good appetite. No Chest Pain. No Shortness of breath. No orthopnea, PND, or peripheral edema. No abdominal pain, N/V, or change in bowel habits. No diarrhea or constipation. No Bleeding. No urinary hesitancy or frequency. Physical Exam: VS: Temp: 97.6 F [36.4 C] (08/28/2024 14:14) BP: 122/74 (08/28/2024 14:14) Pulse:67 (08/28/2024 14:14) Resp: 16 (08/28/2024 14:14) Weight: 207.6 lb [94.17 kg] (08/28/2024 14:14) Pain: 0 (08/28/2024 14:14) O2 Sat: 97% (08/28/2024 14:14) BMI: 30. HEENT: no scleral icterus Cardiac: RRR with normal S1 and S2; without murmur, gallop, rub. Chest/Lungs: Bilaterally clear, Clear to auscultation Abdominal: Soft, Non-Tender, Bowel Sounds Present Extremities: No edema. alert and oriented x3 Assessment/Plan: PVD- s/p left bka. per [facility] order aterial pump left calf, right calf and foot 1 hr 2x/day -prosthetic consult htn at [place], continue losartan[facility]hctz [facility]- [place] [facility] [place], rosuvasatin hx skin cancer- follow local derm Colonoscopy done 2023 with 7-year follow-up recommended. rtc in 1 yr no labs Patient Education of Treatment Plan: Patient indicates readiness to learn, verbalizes understanding, agreement and satisfaction with the treatment plan. Denies further questions. More than 50% of this 45 min appt was spent counseling/coordinating care for the medical problems outlined above. Avg Risk Colorectal Cancer Screen: AVERAGE RISK colorectal cancer screening is due based on information available to this clinical reminder Prior/outside colonoscopy results: Date: April, ? Exact date is unknown Colonoscopy reminder set 7 years from AUG 28, 2024. Assess Statin Use - Lipids (CVD/DM): The patient is already on a statin. The patient is on a statin from a source outside this [place]. Medication list updated. Toxic Exposure Screening Follow-Up: Exposure Concern(s): 08/28/2024 Agent Gallia - Toxic Exposure Concern Follow-up Question(s): 08/28/2024 No Questions - Toxic Exposure Concern Lindsey/caregiver has no health or medical concerns related to their concern of environmental exposure. The following connections were provided to the /caregiver: No connections needed at this time Medication Reconciliation: Education Evaluations *Was medication education provided for NEW medications or CHANGES to medications? (including medication name, dose, route, reason for use, and potential side effects). No new medications or medication changes during this encounter. == TERATOGENIC MED & CONTRACEPTION REVIEW (Optional)... == ========= MEDICATION RECONCILIATION ========= Active and Recently Outpatient Medications (including Supplies): Start Date Active Non-[place] Medications Status Stop Date === 1) Non-VA HCTZ 12.5MG/LOSARTAN 50MG TAB Si ACTIVE TABLET MOUTH EVERY DAY 2) Non-VA ROSUVASTATIN CA 10MG TAB SiMG ACTIVE MOUTH EVERY DAY // CATARINO MASTERS NURSE PRACTITIONER Signed: 08/28/2024 15:33 CATARINO MASTERS [facility] Aug 28, 2024 02:19 PM INTERNAL MEDICINE OUTPATIENT NOTE: LOCAL TITLE: MEDICINE CLINIC NURSING NOTE STANDARD TITLE: INTERNAL MEDICINE OUTPATIENT NOTE DATE OF NOTE: AUG 28, 2024@14:19 ENTRY DATE: AUG 28, 2024@14:19:25 AUTHOR: GERARDO KEYS EXP COSIGNER: URGENCY: STATUS: COMPLETED TYPE OF VISIT: Appointment Check In Type of appointment: In-person appointment REASON FOR VISIT: Establish care ALLERGIES: No Allergy Assessment VITAL SIGNS: Blood Pressure: 122/74 (08/28/2024 14:14) Pulse: 67 (08/28/2024 14:14) Respiration: 16 (08/28/2024 14:14) Temperature: 97.6 F [36.4 C] (08/28/2024 14:14) Weight: 207.6 lb [94.17 kg] (08/28/2024 14:14) Height: 69.5 in [176.5 cm] (08/28/2024 14:14) BMI: 30.3 O2 Sat: 97% (08/28/2024 14:14) Pain: 0 (08/28/2024 14:14) Toxic Exposure Screening: The /caregiver was asked if they believe the experienced any toxic exposure(s), such as Airborne Hazards and Open Burn Pit, [place] War related exposures, Agent Gallia, Radiation, contaminated water at [place] or other such exposures, while serving in the Armed [employer]. 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 Printed information was offered and provided if desired. No questions at this time Lindsey/caregiver was informed of local points of contact. Contact information for local resources: - Veterans Benefits for claims submission: Have the call or have them visit the following web address for online scheduling: [email or web address] - [place] Healthcare Enrollment: [phone] ([phone]) - Find a [place] Patient Financial Services Specialist (VSO): Have the call [phone] or look up their VSO at: [email or web address] - [facility] Navigators: Nasreen Wells, [facility] [phone] Toxic Exposure Screening Follow-Up reminder is needed. Name of person notified: vidal COVID-19 Immunization: Refused Pfizer Monovalent COVID-19 vaccine Immunization: COVID-19 (PFIZER), MRNA, LNP-S, PF, TASNEEM-SUCROSE, 30 MCG/0.3 ML (AGES 12+ YEARS) Refusal Reason: PATIENT DECISION Patient refuses all immunization(s) in the COVID-19 group Date Documented: 08/28/24 14:20 Suicide Screen: C-SSRS Screening [place] Suicide Severity Rating Scale (C-SSRS) screener 1. Over the past month, have you wished you were or wished you could go to sleep and not wake up? No 2. Over the past month, have you had any actual thoughts of killing yourself? No 3. Over the past month, have you been thinking about how you might do this? Response not required due to responses to other questions. 4. Over the past month, have you had these thoughts and had some intention of acting on them? Response not required due to responses to other questions. 5. Over the past month, have you started to work out or worked out the details of how to kill yourself? Response not required due to responses to other questions. 6. If yes, at any time in the past month did you intend to carry out this plan? Response not required due to responses to other questions. 7. In your lifetime, have you ever done anything, started to do anything, or prepared to do anything to end your life (for example, collected pills, obtained a gun, gave away valuables, went to the roof but didn't jump)? No 8. If YES, was this within the past 3 months? Response not required due to responses to other questions. Influenza Immunization: Deferral / Refusal The patient declines to receive the recommended dose of seasonal influenza vaccine. Immunization: INFLUENZA, UNSPECIFIED FORMULATION Refusal Reason: PATIENT DECISION Patient refuses all immunization(s) in the FLU group Date Documented: 08/28/24 14:20 Tobacco Use Screening: The patient has never smoked cigarettes. The patient has never used other types of tobacco. Depression Screening: Perform PHQ-2 A PHQ-2 screen was performed. The score was 0 which is a negative screen for depression. Over the past two weeks, how often have you been bothered by the following problems? 1. Little interest or pleasure in doing things Not at all 2. Feeling down, depressed, or hopeless Not at all Alcohol Use Screen (AUDIT-C): Alcohol Screen: SCREEN FOR ALCOHOL (AUDIT-C) An alcohol screening test (AUDIT-C) was negative (score=3). 1. How often did you have a drink containing alcohol in the past year? Consider a drink to be a 12 ounce can or bottle of regular beer, 8 ounces of malt liquor, a 5 ounce glass of table wine, or a 1.5 ounce shot of liquor (like scotch, gin, or vodka). Two to three times per week 2. How many drinks containing alcohol did you have on a typical day when you were drinking in the past year? One or two drinks 3. How often did you have six or more drinks on one occasion in the past year? Never PTSD Screening: PC-PTSD-5 A PTSD screening test (PC-PTSD-5) was negative (score=0). IN THE PAST MONTH, have you ever had any experience that was so frightening, horrible or traumatic. For example: A serious accident or fire a physical or sexual assault or abuse An earthquake or flood A war Seeing someone be killed or seriously injured Having a loved one through homicide or suicide 1. Have you ever experienced this kind of event? NO 2. Had nightmares about the event(s) or thought about the event(s) when you did not want to? Response not required due to responses to other questions. 3. Tried hard not to think about the event(s) or went out of your way to avoid situations that reminded you of the event(s)? Response not required due to responses to other questions. 4. Been constantly on guard, watchful, or easily startled? Response not required due to responses to other questions. 5. [place] numb or detached from people, activities, or your surroundings? Response not required due to responses to other questions. 6. [place] guilty or unable to stop blaming yourself or others for the event(s) or any problems the event(s) may have caused? Response not required due to responses to other questions. Nursing Annual Screening: Whole Health Screen is due OR due soon (within 90 days). Whole Health Screening Why is addressing your overall health important to you? to manage pain What do you want your health for (why do you want to be healthy)? to get rid of pain Fall History Screen During the past 12 months, have you had any falls? Patient does not report any falls in the past 12 months. MEDICATIONS: Patient does not have an active prescription for one of the following medications: Antihypertensives, Antidepressants, Antipsychotics, Diuretics, or Opioid Analgesics (Contolled Substance medications used for pain). Script Talk Screen Are you able to read your prescription bottles with your glasses, magnifiers or other aids? Yes or patient not taking any prescriptions. Skin Screen Patient reports any current pressure ulcers, a history of pressure ulcers, or a wound from a medical economics consultant or Patient is bed-confined or a wheelchair-user or Patient requires assistance to transfer/change position No, Skin Screen is Negative Home Abuse/Violence Screen Is your home free of abuse and violence? Yes MOVE! Program Screen Body Mass Index (BMI)= 30.3 [place]: No data available [facility] Hgb A1C: No data available [place] Hgb A1C: No data available Point of Care Hgb A1C: POC HGB A1C____ Outpatient Nutrition Screen Body Mass Index (BMI)= 30.3 [place]: No data available [facility] Hgb A1C: No data available [place] Hgb A1C: No data available Point of Care Hgb A1C: POC HGB A1C____ Is patient's BMI less than 18.5? No Does patient have swallowing, coughing, or chewing problems affecting oral intake? No Has patient experienced unplanned weight loss or gain greater than 10 pounds over the last 2 months? No Is patient's Hgb A1C (Glycosylated Hemoglobin) greater than 9.5? Information not available Is patient receiving Total Parenteral Nutrition (TPN) or Tube Feedings? No Patient Health Education Screen BARRIERS/SPECIAL NEEDS: Physical limitations Hearing limitations Visual limitations PREFERRED STYLE OF LEARNING: No preference stated Client Assistive Service (VENUS) Screen Does the patient require assistance with outpatient visit? No MST Screening: Patient denies experiencing sexual trauma (MST). Herpes Zoster (Shingles) Vaccine: The patient declines to receive the recommended dose of zoster (shingles) vaccine. Immunization: ZOSTER RECOMBINANT Refusal Reason: PATIENT DECISION Patient refuses all immunization(s) in the ZOSTER group Date Documented: 08/28/24 14:23 Pneumococcal Conjugate Vaccine (PCV15/PCV20): Refuses PCV vaccine Immunization: PNEUMOCOCCAL CONJUGATE, UNSPECIFIED FORMULATION Refusal Reason: PATIENT DECISION Patient refuses all immunization(s) in the PneumoPCV group Date Documented: 08/28/24 14:23 Td / Tdap Immunization: The patient declines to receive the recommended dose of Td/Tdap vaccine. Immunization: TD(ADULT) UNSPECIFIED FORMULATION Refusal Reason: PATIENT DECISION Patient refuses all immunization(s) in the Td group Date Documented: 08/28/24 14:23 RSV Immunization: Respiratory Syncytial Virus (RSV) Vaccine: Refused PaintZen (Abrysvo, RSVpreF vaccine). Immunization: RSV, BIVALENT, PROTEIN SUBUNIT RSVPREF, DILUENT RECONSTITUTED, 0.5 ML, PF Refusal Reason: PATIENT DECISION Patient refuses all immunization(s) in the RSV group Date Documented: 08/28/24 14:23 Homelessness/Food Insecurity Screen: In the past 2 months, have you been living in stable housing that you own, rent, or stay in as part of a household? Yes - Living in stable housing. Are you worried or concerned that in the next 2 months you may NOT have stable housing that you own, rent, or stay in as part of a household? No - Not worried about housing near future The reports the following: Within the past 12 months, you worried whether your food would run out before you got money to buy more. Never true Within the past 12 months, the food you bought just didn't last and you didn't have money to get more. Never true Food Assistance Programs [facility] Food Assistance Programs [facility] /louann/ GERARDO KEYS LPN Signed: 08/28/2024 14:24 GERARDO KEYS [facility]
--- OUTSIDE RECORDS SUMMARY | 2024-09-08 08:14 | XMS_ITS | Continuity of Care Document ---
Author Name [facility] Organization [facility] Care Team Providers Care Music Publisher Name Role Phone [facility] Unavailable Unavailable Problems Combined list of problems from Department of Defense and Veterans Affairs facilities. It does not include entries that were removed or entered in error. Problem Status Onset Date Problem Type Date of Resolution Comments Source Amputated below knee Active 07/29/19 13 Condition Aug 28, 2024 Entered By: CATARINO MASTERS Comment: LEFT [facility] Basal cell carcinoma of nose Active Condition [facility] Exposure to potentially hazardous substance ([facility] [id number]) Active Condition Sep 03 Entered By: HAYDEN LOMBARDO Comment: Entered automatically through CHRIS Problem List documentation program [facility] HTN - Hypertension ([facility] [id number]) Active Condition [facility] Hyperlipidemia ([facility] [id number]) Active Condition [facility] Peripheral vascular disease Active Condition [facility] Diagnosis: ICD-10-CM Z65.9 Problem related to unspecified psychosocial circumstances Active Diagnosis [facility] Diagnosis: ICD-10-CM I73.9 Peripheral vascular disease, unspecified Active Diagnosis [facility] Medications Combined list of outpatient medications from Department of Defense and Veterans Affairs facilities.Medications provided include 1) outpatient medications from the last 15 months, and 2) patient-reported medications. Medication Details Route Status Patient Instructions Prescription Expires Prescription Number Last Dispense Date Ordering Provider Order Date Order Qty Source HYDROCHLORO THIAZIDE 12.5MG/LOSA RTAN POTASSIUM 50MG TAB TAKE 1 TABLET BY MOUTH EVERY DAY FOR BLOOD PRESSURE ORAL ACTIVE 09/02/2025 [id number] 5 LAMAR MASTERS Y 2024 90 [facility] ROSUVASTATI N CA 10MG TAB TAKE ONE TABLET BY MOUTH EVERY DAY FOR CHOLESTE ROL ORAL ACTIVE 09/02/2025 [id number] 5 LAMAR MASTERS Y 2024 90 [facility] Allergies, Adverse Reactions, Alerts Combined list of allergies from Department of Defense and Veterans [facility] facilities. It does not include entries that were removed or entered in error. Substance Category Reaction Severity Reaction type Status Date Reported Comments Source [place] Propensity to adverse reaction (finding) Angioedema active 5 [facility] CEFAZOLIN Propensity to adverse reactions to drug (finding) Eruption active 5 [facility] METRONIDAZOL E Propensity to adverse reactions to drug (finding) Jaundice active 5 [facility] Immunizations Combined list of available immunizations from the Department of [facility] and Veterans [facility] facilities. Immunization Series Date Given Administered By Site Reaction Lot Number CVX Code Drug Wagon Washer Status Comments Source COVID-19 (Storific), MRNA, LNP-S, PF, 30 MCG/0.3 ML DOSE 2020 208 complet ed HISTORICA L INFORMATI ON - FROM OTHER REGISTRY, [facility] COVID-19 (PFIZER), MRNA, LNP-S, PF, 30 MCG/0.3 ML DOSE 2020 208 complet ed HISTORICA L INFORMATI ON - FROM OTHER REGISTRY, [facility] TDAP 2011 115 complet ed HISTORICA L INFORMATI ON - FROM OTHER REGISTRY, [facility] TDAP 2010 115 complet ed HISTORICA L INFORMATI ON - FROM OTHER REGISTRY, [facility] Vital Signs Combined list of inpatient and outpatient Vital Signs from [facility] and [facility], ranging from 12 months to all on record, depending upon the facility. Vital Sign Value Date Comments Source SYSTOLIC BLOOD PRESSURE 122 08/28/2024 14:14:53 [facility] DIASTOLIC BLOOD PRESSURE 74 08/28/2024 14:14:53 [facility] PULSE OXIMETRY 97 08/28/2024 14:14:53 [facility] 207.6 08/28/2024 14:14:53 [facility] BMI 30 kg/m2 08/28/2024 14:14:53 [facility] PAIN 0 08/28/2024 14:14:53 [facility] HEIGHT 69.5 08/28/2024 14:14:53 [facility] TEMPERATURE 97.6 08/28/2024 14:14:53 [facility] HCS PULSE 67 08/28/2024 14:14:53 VIKI JONES [place] [facility] RESPIRATION 16 08/28/2024 14:14:53 [facility] Encounters Combined list of: 1) Encounters from Department of Veterans Affairs facilities going backup to the last 18 months, not all [place] inpatient encounters are included; 2) Encounters from the Department of [facility] facilities going backup to 280 months. Location Location Details Encounter Type Encounter Number Reason For Visit Attending Provider ADM Date DC Date Status Dis[place] [facility] Outpatient Encounter [id number] 04[place] [facility] [place] [facility] Outpatient Encounter [id number] 08/12 [place] [facility] [place] [facility] Outpatient Encounter [id number] 08/14 [place] [facility] [place] [facility] Outpatient Encounter [id number] 08/19 [place] [facility] [place] [facility] Outpatient Encounter [id number] 08/28 [place] [facility] [place] [facility] Outpatient Encounter [id number] 08[facility]28 [facility] [place] [facility] OFFICE O/P NEW MOD 45 MIN [id number] Diagnos is: ICD-10- CM I73.9 Periphe ral vascula r disease , unspeci fied BRE MASTERS Y 08/28 [place] [facility] [place] [facility] Outpatient Encounter [id number] 08/28 [place] [facility] [place] [facility] Outpatient Encounter [id number] 08/28 [facility] [place] [facility] OFF[facility] O/P EST SF 10 MIN [id number] Diagnos is: ICD-10- CM I73.9 Periphe ral vascula r disease , unspeci fied SASHA,JAMES C 09/04 [facility] [place] [facility] PH1 ASSMT&MGMT NQHP 5-10 [id number] Diagnos is: ICD-10- CM Z65.9 Problem related to unspeci fied psychos ocial circums tances ME MEGHAN DELGADILLO 09/08 [facility] [place] [facility] Outpatient Encounter [id number] ME MEGHAN DELGADILLO 09/08 [facility] Social History Combined list of available smoking, tobacco, and other social history from Department of Defense and Veterans Affairs facilities. Social History Type Response Date Comment Sourc e Tobacco smoking status NHIS [place]-TOBACCO NEVER USED CIGARETTES 08/28/2024 [facility] History of tobacco use [place]-TOBACCO NEVER USED OTHER TYPE 08/28/2024 [facility] Advance Directives List of completed, amended, or rescinded Advance Directives on record at Department of Veterans Affairs facilities. An actual copy of the Directive is not included. Date Advance Directive Provider Source 09/08/2024 ADVANCE DIRECTIVE [facility] 09/08/2024 ADVANCE DIRECTIVE DISCUSSION JOANIE DELGADILLO [facility]
--- OUTSIDE RECORDS SUMMARY | 2024-09-08 08:14 | XMS_ITS | Continuity of Care Document ---
Author Name [facility] Organization [facility] Care Team Providers Care Wafer Polisher Name Role Phone [facility] Unavailable Unavailable Problems Combined list of problems from Department of Defense and Veterans Affairs facilities. It does not include entries that were removed or entered in error. Problem Status Onset Date Problem Type Date of Resolution Comments Source Amputated below knee Active 07/29/19 13 Condition Aug 28, 2024 Entered By: CATARINO MASTERS Comment: LEFT [facility] Basal cell carcinoma of nose Active Condition [facility] Exposure to potentially hazardous substance ([facility] [id number]) Active Condition Sep 03 Entered By: HAYDEN LOMBARDO Comment: Entered automatically through CHRIS Problem List documentation program [facility] HTN - Hypertension ([facility] [id number]) Active Condition [facility] Hyperlipidemia ([facility] [id number]) Active Condition [facility] Peripheral vascular disease Active Condition [facility] Diagnosis: ICD-10-CM Z65.9 Problem related to unspecified psychosocial circumstances Active Diagnosis [facility] Diagnosis: ICD-10-CM I73.9 Peripheral vascular disease, unspecified Active Diagnosis [facility] Medications Combined list of outpatient medications [...] DAY FOR BLOOD PRESSURE ORAL ACTIVE 09/02/2025 [id number] 5 LAMAR MASTERS Y 2024 90 [facility] ROSUVASTATI N CA 10MG TAB TAKE ONE TABLET BY MOUTH EVERY DAY FOR CHOLESTE ROL ORAL ACTIVE 09/02/2025 [id number] 5 LAMAR MASTERS Y 2024 90 [facility] Allergies, Adverse Reactions, Alerts Combined list of allergies from Department of Defense and Veterans [facility] facilities. It does not include entries that were removed or entered in error. Substance Category Reaction Severity Reaction type Status Date Reported Comments Source [facility] Propensity to adverse reaction (finding) Angioedema active [address] [facility] CEFAZOLIN Propensity to adverse reactions to drug (finding) Eruption active 5 [facility] METRONIDAZOL E Propensity to adverse reactions to drug (finding) Jaundice active [address] [facility] Immunizations Combined list of available immunizations from the Department of [facility] and Veterans [facility] facilities. Immunization Series Date Given Administered By Site Reaction Lot Number CVX Code Drug Food And Beverage Associate Status Comments Source COVID-19 (Modumetal), MRNA, LNP-S, PF, 30 MCG/0.3 ML DOSE 2020 208 complet ed HISTORICA L INFORMATI ON - FROM OTHER REGISTRY, [facility] COVID-19 (PFIZER), MRNA, LNP-S, PF, 30 MCG/0.3 ML DOSE 2020 208 complet ed HISTORICA L INFORMATI ON - FROM OTHER REGISTRY, [facility] TDAP 2011 115 complet ed HISTORICA L INFORMATI ON - FROM OTHER REGISTRY, [facility] TDAP 2010 115 complet ed HISTORICA L INFORMATI ON - FROM OTHER REGISTRY, [facility] Vital Signs Combined list of inpatient and outpatient Vital Signs from [facility] and [facility], ranging from 12 months to all on record, depending upon the facility. Vital Sign Value Date Comments Source SYSTOLIC BLOOD PRESSURE 122 08/28/2024 14:14:53 [facility] DIASTOLIC BLOOD PRESSURE 74 08/28/2024 14:14:53 [facility] PULSE OXIMETRY 97 08/28/2024 14:14:53 [facility] WEIGHT 207.6 08/28/2024 14:14:53 [place] [facility] BMI 30 kg/m2 08/28/2024 14:14:53 [facility] PAIN 0 08/28/2024 14:14:53 [facility] HEIGHT 69.5 08/28/2024 14:14:53 [facility] TEMPERATURE 97.6 08/28/2024 14:14:53 [facility] HCS PULSE 67 08/28/2024 14:14:53 VIKI JONES [place] HCS RESPIRATION 16 08/28/2024 14:14:53 [facility] Encounters Combined list of: 1) Encounters from Department of Veterans Affairs facilities going backup to the last 18 months, not all [place] inpatient encounters are included; 2) Encounters from the Department of [facility] facilities going backup to 280 months. Location Location Details Encounter Type Encounter Number Reason For Visit Attending Provider ADM Date DC Date Status [place] [facility] Outpatient Encounter [id number] 04/28 [place] [facility] [place] [facility] Outpatient Encounter [id number] 08/12 [place] [facility] [place] [facility] Outpatient Encounter [id number] 08/14 [place] [facility] [place] [facility] Outpatient Encounter [id number] 08/19 [place] [facility] [place] [facility] Outpatient Encounter [id number] 08/28 [place] [facility] [place] [facility] Outpatient Encounter [id number] 08/28 [facility] [place] [facility] OFFICE O/P NEW MOD 45 MIN [id number] Diagnos is: ICD-10- CM I73.9 Periphe ral vascula r disease , unspeci fied BRE MASTERS Y 08/28 [place] [facility] [place] [facility] Outpatient Encounter [id number] 08/28 [place] [facility] [place] [facility] Outpatient Encounter [id number] 08/28 [facility] [place] [facility] OFFICE O/P EST SF 10 MIN [id number] Diagnos is: ICD-10- CM I73.9 Periphe ral vascula r disease , unspeci fied SASAH,JAMES C 09/04 [facility] [place] [facility] PH1 ASSMT&MGMT NQHP 5-10 [id number] Diagnos is: ICD-10- CM Z65.9 Problem related to unspeci fied psychos ocial circums tances ME MEGHAN DELGADILLO 09/08 [facility] [place] [facility] Outpatient Encounter [id number] ME MEGHAN DELGADILLO 09/08 [facility] Social History Combined list of available smoking, tobacco, and other social history from Department of Defense and Veterans Affairs facilities. Social History Type Response Date Comment Sourc e Tobacco smoking status NHIS [place]-TOBACCO NEVER USED CIGARETTES 08/28/2024 [facility] History of tobacco use MD-TOBACCO NEVER USED OTHER TYPE 08/28/2024 [facility] Advance Directives List of completed, amended, or rescinded Advance Directives on record at Department of Veterans Affairs facilities. An actual copy of the Directive is not included. Date Advance Directive Provider Source 09/08/2024 ADVANCE DIRECTIVE MISTY DELGADILLO [facility] 09/08/2024 ADVANCE DIRECTIVE DISCUSSION JOANIE DELGADILLO [facility]
--- OUTSIDE RECORDS SUMMARY | 2024-12-29 13:15 | XMS_ITS | Encounter Summary ---
Author Organization [facility] Address [address] [place] [address] Care Team Providers Care Sessions Clerk Name Role Phone Elsewhere, Pcp Primary Care Provider Unavailabl e Reason for Referral * Outpatient (Routine) - Authorized Specialty Diagnoses / Procedures Referred By Marylou oneal Referred To Contact Diagnoses Pain Chronic Due To Trauma Peripheral Vascular Disease Lumbago With Sciatica Left Side Procedures [facility] Acupuncture [facility] in [place], [place] [address] [place] [address] Phone: tel: [facility] Referral ID Status Reason Start Date Expiration Date V isits Requested Visits Authorized [id number] Authorized 12/29/2024 03/31/2026 19 19 Reason for Visit * Outpatient (Routine) - Closed Specialty Diagnoses / Procedures Referred By Marylou oneal Referred To Contact Diagnoses Pain Chronic Due To Trauma Peripheral Vascular Disease Lumbago With Sciatica Left Side Procedures [facility] Acupuncture Sal Lenz M.D. [address] [place] [address] Phone: tel: fax: [facility] Referral ID Status Reason Start Date Expiration Date Visits Re quested Visits Authorized [id number] Closed 08/10/2024 08/10/2025 1 1 Encounter Details Date Type Department Care Team (Latest Contact Info) Description 12/29/2024 1:15 PM CDT Clinical Support [facility] in [place], [place] [address] [place] [phone] Sal Lenz M.D. [address] [place] [address] Ishaan Edwards L.Ac. Lumbago With Sciatica Left Side (Primary Dx); Pain Chronic Due To Trauma; Peripheral Vascular Disease Social History Tobacco Use Types Packs/Day Years Used Date Smoking Tobacco: Never Smokeless Tobacco: Never [facility] Utilities Answer Date Recorded In the past 12 months has e mcTEL, gas, oil, or water Asteres threatened to shut off services in your home? No 11/07/2023 Exercise Vital Sign Answer Date Recorde d On average, how many days pe r week do you engage in moderate to strenuous exercise (like a brisk walk)? 3 days 11/07/2023 On average, how many minutes do you engage in exercise at this level? 20 min 11/07/2023 Hunger Vital Sign Answer Date Recorded Within the past 12 months, y ou worried that your food would run out before you got the money to buy more. Never true 11/07/19 Within the past 12 months, t he food you bought just didn't last and you didn't have money to get more. Never true 11/07/2023 PRAPARE - Transportation Answer Date Re corded In the past 12 months, has l ack of transportation kept you from medical appointments or from getting medications? No 10/27 In the past 12 months, has l ack of transportation kept you from meetings, work, or from getting things needed for daily living? No 11/07/2023 Nutrition Answer Date Recorded On average, how many serving s of fruits and vegetables do you eat per day (serving size is equal to 1 cup or approximately the size of a tennis ball)? 3-5 11/07/2023 Dental Answer Date Recorded Dental: Regular Dentist Yes 11/07/19 Employment Answer Date Recorded Employment status Retired 11/07/2023 Housing Stability Answer Date Recorded What is your living situation today? 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 - 12/29/2024 1:15 PM CDT INDIVIDUAL ACUPUNCTURE TREATMENT - NEW PATIENT Referral Source: Sal Lenz M.[place]. Supervised by: [place] [id number] SUBJECTIVE Chief Complaint: Left Leg Pain, Sciatica History of Present Illness Mr. Resendiz is a 74 y.o. male referred for evaluation and consideration of acupuncture treatment.Mr. Resendiz is seen in the outpatient setting. Their medical history is well documented, and relevant portions were reviewed and discussed at today's session. Initial Acupuncture Treatment 12/29/24 Ezequiel comes in for an initial trial of acupuncture to address pain in his left leg. He had an amputation below the knee in 2012 and is currently experiencing pain in the area below that knee which sits in his prosthetic leg. It is worsened with walking, and Ezequiel will have to remove him prosthetic and rest before the pain resolves. He has radiating pain up the lateral aspect of the leg and hip when the pain gets bad, leads his referring provider to suspect sciatic nerve involvement. He has also trialed an arterial pump without noticeable benefit so far. He is able to remove his prosthetic and lie comfortably in supine position for treatment. ASSESSMENT / PLAN #1 Pain Chronic Due To Trauma #2 Peripheral Vascular Disease #3 Lumbago With Sciatica Left Side This is treatment 1 of expected 20 treatments. Frequency: Acupuncture ordered for: Acute care Benefits and risks of acupuncture were discussed with patient and patient has signed consent authorization to proceed with treatment. Patient was informed that results may vary dependent on severity of symptoms and frequency of treatment. It was noted that most patients need a series of acupuncture treatments to obtain symptom relief. Position: supine Acupuncture Points Used: Set One: ST 36, SP 9, GB 34 Set Two: Left ST 37, ST 34, SP 10, LV 3; GB 33, 32, 31 Other: [place] Electrified: No Notes: Stimulation Intensity: Medium Needle Size: 0.20mm Adjunct Therapies Diathermy: Yes Cupping: No Other: [place] Used: 13 [place] Retrieved: 13 All needles used were retrieved and accounted for: Yes Total Needling Time: 30 minutes Additional notes: Patient tolerated acupuncture without any complications and will follow up as scheduled. PPE used by Provider during visit: Mask The attendance policy for acupuncture has been reviewed and discussed with the patient in person. The patient has been made aware that due to high demand, acupuncture appointments are not always available in the timeframe or at the rate of frequency recommended to the patient. Patient Centered Plan of Care: The following plan of care, goals and recommendations have been discussed with the patient. Acupuncture treatment is time limited. The patient has been made aware that the purpose of acupuncture treatment is to make progress toward stated goals. Achievement of goals or therapeutic plateau will precipitate a change in type or frequency of therapeutic intervention or dismissal from this program with recommendations for availing acupuncture in his/her community. Patient has been provided resources and the www.[employer]CCA[employer].org for locating a qualified licensed customs broker in the local community. PATIENT EDUCATION Patient was ready to learn, and no apparent learning barriers were identified. Learning preference include listening. Diagnosis and treatment plan were explained. Patient/caregiver expressed understanding of the content. For all therapies applied today, including but not limited to acupuncture, cupping, electrical stimulation, auricular tacks, and use of topical agents and patches, the patient was informed of how to identify and address rare but potential adverse reactions. documented in this encounter Plan of Treatment Upcoming Encounters Date Type Department Care Team (Latest Contact Info) Description 02/18/2025 11:00 AM CDT Virtual Visit Department of Vascular Medicine in [place], [place] [address] [place] [address] Sal Lenz M.D. [address] [place] [address] Discharge Disposition: Home or Self Care 03/19/2025 4:00 PM CDT Clinical Support [facility] in [place], [place] [address] [place] [address] Ishaan Edwadrs L.Ac. Scheduled Orders Name Type Priority Associated Diagnoses Orde r Schedule [facility] Acupuncture Procedures Routine Pain Chronic Due To Trauma Peripheral Vascular Disease Lumbago With Sciatica Left Side 19 Occurrences starting 12/29/2024 until 03/31/2026 documented as of this encounter Visit Diagnoses Diagnosis Lumbago With Sciatica Left Side- Primary Pain Chronic Due To Trauma Peripheral Vascular Disease documented in this encounter Care Teams Sessions Clerk Relationship Specialty Start Date End Date Elsewhere, Pcp PCP - General Internal Medicine 07/11/23 documented as of this encounter
[2024-12-30] VITALS (8 sets, daily range): BP systolic 136–167; BP diastolic 91–97; PULSE 64–68; RESP 9–16; TEMP 36.3; O2SAT 97–100; BMI 28.7
--- OUTSIDE RECORDS SUMMARY | 2024-12-30 19:38 | XMS_ITS | Clinical Summary ---
Author Organization [facility] Address [address] [place] [id number] Care Team Providers Care Occupational Therapy Manager Name Role Phone Juan C Tapia MD Primary Care Provider Allergies Active Allergy Reactions Criticality Noted Date Comments Cefazolin Rash 10/20/2012 Metronidazole Jaundice 11/06/2012 Unlisted Allergen (Include D etail In Comments) Angioedema 11/06/2012 Bee Stings Medications polyethylene glycol-electrolyte (GOLYTELY) 236-22.74-6.74 -5.86 gram suspensionIndicati ons:Polyp of colon, unspecified part of colon, unspecified type Drink 2 liters the day before colonoscopy and 2 liters 6 hours before colonoscopy appointment 4000 mL 08/07/19 24 Active cholecalciferol, Vitamin D3, 2,000 unit tablet Take 50 mcg by mouth once daily. Active VITAMIN B COMPLEX ORAL Take 1 Capsule by mouth once daily. Active losartan-hydrochlo rothiazide, 50-12.5 mg, (HYZAAR) 50-12.5 mg tabletIndications: Benign essential HTN Take 1 Tablet by mouth once daily. 90 Tablet 3 08/07/19 25 Active rosuvastatin (CRESTOR) 10 mg tabletIndications: Hyperlipidemia, unspecified hyperlipidemia type Take 1 Tablet (10 mg) by mouth at bedtime. 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 Pretreatment LDL 152. Peripheral arterial disease Overview (08/07/2024): By [facility] July 2023 left-sided distal filling by collaterals only Resolved Problems Problem Noted Date Diagnosed Date Resolved Date FOREIGN BODY, CORNEA--L 09/20/200409/27 Other and unspecified malign ant neoplasm of skin of other and unspecified parts of face 05/09/2004 10/17/2009 PAIN IN JOINT, SHOULDER 12/28/199909/27 TENDONITIS 12/28/1999 10/17/2009 Immunizations Immunization Administration Dates Next Due COVID-19 vaccine ([email or web address] 30mcg/0.3mL) P F, MDV 12/08/2020,11/17/2020 Tdap 02/23/2012,11/03/2010 Family History Medical History Relation Name Comments Diabetes Brother 2 at 68 Diabetes Brother 3 twin brother, D 66 Hypertension Father at 57, smo ker, etoh. Stroke Father Other Mother from ow obstruction/alzheimer's Heart Disease Neg. 1 Cancer-colon Neg. 2 Anesthesia Problem Neg. 3 Genetic Other irregular heart beat-mother heart disease-parents diabetes-2brothers and mother~stroke-dad Cancer-prostate Paternal Uncle Relation Name Status Comments Brother 1 Brother 2 Brother 3 Father Mother Neg. 1 Neg. 2 Neg. 3 Other Paternal Uncle Social History Tobacco Use Types Packs/Day Years Used Date Smoking Tobacco: Never Smokeless Tobacco: Never Tobacco Cessation:Counseling Given: No Alcohol Use Standard Drinks/Week Comments Yes 0 (1 standard drink = 0.6 oz pur e alcohol) very little PHQ-2 Answer Date Recorded PHQ-2 TOTAL SCORE 0 08/07/2024 Social Connections Answer Date Recorded Do you often feel lonely or isolated from those around you? 0 08/07/2024 Financial Resource Strain Answer Date R ecorded Difficulty of Paying Living Expenses 3 08/07/2024 Difficulty of Paying Living Expenses Not on file 08/07/2024 Food Insecurity Answer Date Recorded Do you worry your food will run out before you are able to buy more? 1 08/07/2024 Transportation Needs Answer Date Record ed Does lack of transportation keep you from medica l appointments? 1 08/07/2024 Does lack of transportation keep you from work, meetings or getting things that you need? 1 08/07/2024 Housing Stability Answer Date Recorded What is your housing situation today? 1 08/07/2024 Utilities Answer Date Recorded Do you have trouble paying f or utilities (for example, heat, electricity, water, phone)? 1 08/07/2024 Sex and Gender Information Value Date Recorded Sex Assigned at Not on file Legal Sex Male 7:22 AM FLEXO PRESS OPERATOR Gender Identity Not on file Sexual Orientation Not on file Obstetrics History Last Filed Vital Signs Vital Sign Reading Time Taken Comments Blood Pressure 106/67 08/07/2024 10:19 AM FLEXO PRESS OPERATOR Pulse 80 08/07/2024 10:19 AM FLEXO PRESS OPERATOR Temperature 36.3 C (97.3 F) 09/09/2018 11:40 AM FLEXO PRESS OPERATOR Respiratory Rate 14 08/13/2023 3:23 PM FLEXO PRESS OPERATOR Oxygen Saturation 97% 08/07/2024 10: 19 AM FLEXO PRESS OPERATOR Inhaled Oxygen Concentration - - Weight 93.4 kg (205 lb 12.8 oz) 025 10:19 AM FLEXO PRESS OPERATOR Height 175.6 cm (5' 9.13) 08/07/2024 1 0:19 AM FLEXO PRESS OPERATOR Body Mass Index 30.27 08/07/2024 10:19 AM FLEXO PRESS OPERATOR Plan of Treatment Health Maintenance Due Date Last Done Comments Pneumococcal series for age 50+ (1 of 1 - PCV) 1999 Zoster (shingles) series for age 50+ (1 of 2) 1999 Tetanus booster 02/22/2022 02/23/2012, 11/03/2010 COVID-19 vaccine series ( season) 2024 12/08/2020, 11/17/2020 RSV vaccine for adults or (1 - 1-dose 75+ series) 2024 Influenza Vaccine (Season Ended) 2025 BMI (ht and wt on same day) for age 18+ 08/07/2025 08/07/2024, 08/06/2023, 09/09/2018, Additional history exists Depression screening for age 12+ 08/07/2025 08/07/2024 Medicare Wellness for age 65+ 08/08/2025 08/07/2024, 08/06/2023, 03/02/2016 Lipids for age 45-75 08/07/2029 08/07/2024, 11/04/2023, 08/06/2023, Additional history exists Colonoscopy through age 75 08/13/203008/13, 08/13/2023, 08/13/2023, Additional history exists Tdap Completed 02/23/2012, 11/03/2010 Hepatitis C screening for age 18-79 Completed 03/02/2016 Hepatitis B series for 19+ Aged Out N o longer eligible based on patient's age to complete this topic Procedures Procedure Name Priority Date/Time Associated Diagnosis Comments LIPID PANEL W REFLEX MEASURED LDL Routine 08/07/2024 10:51 AM FLEXO PRESS OPERATOR Hyperlipidemia, unspecified hyperlipidemia type COLONOSCOPY SCREENING Routine 08/13/2023 1:25 PM FLEXO PRESS OPERATOR History of colon polyps ANTI HCV Routine 03/02/2016 3:04 PM CDT Need for hepatitis C screening test from Last 3 Months or Most Recently Relevant to Health Maintenance Results * LIPID PANEL W REFLEX MEASURED LDL (08/07/2024 10:51 AM FLEXO PRESS OPERATOR) CHOLESTEROL, TOTAL 130 <200 mg/dL [facility] HDL CHOLESTEROL 52 > OR = 40 mg/dL [facility] TRIGLYCERIDES 106 <150 mg/dL [facility] LDL-CHOLESTEROL 59 mg/dL (calc) [facility] Comment: Reference range: <100 Desirable range <100 mg/dL for primary prevention; <70 mg/dL for patients with CHD or diabetic patients with > or = 2 CHD risk factors. LDL-C is now calculated using the Lavonne calculation, which is a validated novel method providing better accuracy than the Friedewald equation in the estimation of LDL-C. Buck BERNARD et al. JULY. 2013;310(19): 5136-8885 (http://education.[employer]/faq/MEZ212) CHOL/HDLC RATIO 2.5 <5.0 (calc) [facility] NON HDL CHOLESTEROL 78 <130 mg/dL (calc) [facility] Comment: For patients with diabetes plus 1 major ASCVD risk factor, treating to a non-HDL-C goal of <100 mg/dL (LDL-C of <70 mg/dL) is considered a therapeutic option. Blood BLOOD SPECIMEN / Unknown 08/07/2024 10:51 AM FLEXO PRESS OPERATOR 08/07/2024 10:52 AM FLEXO PRESS OPERATOR Juan C Tapia MD CHEMISTRY Final Result [facility] [address] [place] [address], [facility] [address] [place] [address] * COLONOSCOPY (08/13/2023 2:04 PM FLEXO PRESS OPERATOR) 08/13/2023 2:04 PM FLEXO PRESS OPERATOR Narrative Transcriptions Buck Yanez MD - 08/13/2023 3:10 PM CST Patient Name: Ezequiel Resendiz Procedure Date: 08/13/2023 Gender: Male Date of : 1950 Admit Type: Outpatient Procedure: Colonoscopy Proceduralist: Buck Yanez MD , Aracely Grant (Nurse), Viridiana Cano (Nurse) Referring MD: Juan C Tapia Indications/Pre-Op Diagnosis: High risk colon cancer surveillance:Personal history of adenoma less than 10 mm in size, Last colonoscopy: August 2020 Medications: Fentanyl 100 micrograms IV, Midazolam 4 mgIV Procedure Description: The patient had risks, benefits and alternatives explained to andgave informed consent. The patient had a stable cardiopulmonary status and judged an adequate candidate for conscious sedation. The endoscope [id number]-[id number] [id number] was passed through the anus andadvanced to the cecum, identified by appendiceal orifice and ileocecal valve.The colonoscopy was performed without difficulty. The patient toleratedthe procedure well. The quality of the bowel preparation was good. The ileocecal valve, appendiceal orifice, and rectum were photographed. Complications: No immediate complications. Estimated Blood Loss & Specimen: Estimated blood loss: none. Specimen collected - Yes and sent to Laboratory Findings: The perianal and digital rectal examinations were normal. A 3 mm polyp was found in the transverse colon. The polyp wassessile. The polyp was removed with a cold biopsy forceps. Resection and retrieval were complete. The exam was otherwise without abnormality. Impressions/Post-Op Diagnosis: - One 3 mm polyp in the transverse colon, removed with a cold biopsy forceps. Resected and retrieved. - The examination was otherwise normal. Recommendation: - Patient has a contact number available for emergencies. The signsand symptoms of potential delayed complications were discussed with the patient. Return to normal activities tomorrow. Written discharge instructions were provided to the patient. - Resume previous diet. - Continue present medications. - Await pathology results. - Repeat colonoscopy for surveillance based on pathology results. Moderate Sedation: A time out was performed before the procedure. Moderate (conscious) sedation was administered by the endoscopy nurse and supervised bythe endoscopist. The following parameters were monitored: oxygensaturation, heart rate, blood pressure, EKG, CO2, respiratory rate, adequacy of pulmonary ventilation and reponse to care. Please refer to the patient's medical record flowsheets and nursing notes for moderate sedation details. Total physician intraservice time was 18 minutes. Buck Yanez MD 08/13/2023 3:09:47 PM This report has been signed electronically. Note Initiated On: 08/13/2023 2:04 PM Procedure Code(s): --- Professional --- 27306, Colonoscopy, flexible; with biopsy, single or multiple Diagnosis Code(s): --- Professional --- Z86.010, Personal history of colonicpolyps D12.3, Benign neoplasm of transverse colon (hepatic flexure or splenic flexure) CPT copyright 2021 [employer]. All rights reserved. The codes documented in this report are preliminary and upon svp research and strategic analysis reviewmay be revised to meet current compliance requirements. Scope In: 2:47:15 PM Scope Withdrawal Time 0 hours 10 minutes 51 seconds Scope Out: 3:02:15 PM us Buck Yanez MD PROCEDURE ORD Final Res ult * ANTI HCV [38670.2] (03/02/2016 3:04 PM CDT) HEPATITIS C ANTIBODY Non-Reacti ve Non-Reacti ve 03/02/2016 8:28 PM CDT [facility] Blood BLOOD SPECIMEN / Unknown Venipuncture / Unknown 03/02/2016 3:04 PM CDT 03/02/2016 3:04 PM CDT Narrative [facility] - 03/02/2016 8:28 PM CDT Antibodies to HCV not detected; does not exclude the possibility of exposure to HCV. us Juan C Tapia MD SEND OUTS Final Result [facility] [address] [place] [address], [place] from Last 3 Months or Most Recently Relevant to Health Maintenance Insurance MEDICARE PB ONLY MEDICARE PART B HB ONLY [employer] [address] Advance Directives * Full Code (Latest Code Status on File) Date Activated Date Inactivated Comments 04/05/2016 6:31 AM 04/05/2016 1:47 PM Question Answer Comments Code Status Discussion: Not Discussed Care Teams Occupational Therapy Manager Relationship Specialty Start Date End Date Juan C Tapia MD [address] [facility] [address] PCP - General Family Practice 03/21/12
--- OUTSIDE RECORDS SUMMARY | 2024-12-30 19:38 | XMS_ITS | Clinical Summary ---
Author Organization [facility] Address [address] [place] [id number] Care Team Providers Care Skate Shop Attendant Name Role Phone Elsewhere, Pcp Primary Care Provider Unavailabl e Source Comments Patient records contain information from all sites at [facility]. For routine questions regarding patient records, call [phone] during business hours, M-F 8:00 AM - 5:00 PM Central Time. Record requests for emergency care only can be directed to [phone] at any time.[facility] Allergies Active Allergy Reactions Criticality Noted Date Comments Bee Venom Protein (Honey Bee) Swelling 02/24/2012 Cefazolin Rash 10/20/2012 itching Metronidazole Other (see comments) 10/30/2012 Cholestatic Jaundice Medications chlorhexidine (HIBICLENS) 4 % external solution Apply 1 application topically as needed (As needed for folliculitis). 120 mL 0 Active acetaminophen (Tylenol Extra Strength) 500 mg tablet Take 2 tablets by mouth every 6 (six) hours as needed. 3 Active triamcinolone (KENALOG) 0.1 % creamIndication s:Capillaritis Apply 1 application topically at bedtime. Apply to the spots on the leg/stump after removing the prosthesis 240 g 3 1 Active clotrimazole (LOTRIMIN) 1 % cream Apply 1 Application topically as needed. Active vitamin E, dl, acetate, oil Apply topically as needed. Active losartan-hydroC HLOROthiazide (Hyzaar) 50-12.5 mg per tablet Take 1 tablet by mouth daily. Active rosuvastatin (Crestor) 10 mg tablet Take 1 tablet by mouth at bedtime. 02/06/202 4 Active cholecalciferol (Vitamin D3) 50 mcg (2,000 Unit) tablet Take 50 mcg by mouth daily. Active B complex-vitamin (Super B-50) capsule Take 1 capsule by mouth daily. Active Active Problems Problem Noted Date Diagnosed Date Edema 06/30/2024 Pain In Left Lower Leg 06/30/2024 Peripheral Vascular Disease 06/30/2024 Atherosclerosis Of [place] Ar teries Of Extremities With Intermittent Claudication Left Leg 07/15/2023 Amputation Leg Below Knee Status Post Left 02/23 Encounters Date Type Department Care Team Description 12/29/2024 1:15 PM CDT Clinical Support [facility] in [place], [place] [address] [place] [address] Sal Lenz M.D. Ishaan Edwards L.Ac. Lumbago With Sciatica Left Side (Primary Dx); Pain Chronic Due To Trauma; Peripheral Vascular Disease from Last 3 Months Social History Tobacco Use Types Packs/Day Years Used Date Smoking Tobacco: Never Smokeless Tobacco: Never Tobacco Cessation:Counseling Given: Not Answered [facility] Utilities Answer Date Recorded In the past 12 months has [employer], gas, oil, or water [employer] threatened to shut off services in your [...] money to buy more. Never true 11/07/19 24 Within the past 12 months, t he [...] your living situation today? 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 Gender Identity Male 11/07/2023 10:52 AM CDT Sexual Orientation Straight 11/07/2023 10 :52 AM CDT Last Filed Vital Signs Vital Sign Reading Time Taken Comments Blood Pressure 120/74 08/10/2024 8:34 AM HUMIDIFIER MAINTENANCE WORKER Pulse 70 08/10/2024 8:34 AM HUMIDIFIER MAINTENANCE WORKER Temperature 36.8 C (98.2 F) 08/10/2024 8:33 AM HUMIDIFIER MAINTENANCE WORKER Respiratory Rate 16 01/10/2013 6:28 AM CDT Oxygen Saturation - - Inhaled Oxygen Concentration - - Weight 92.7 kg (204 lb 5.9 oz) 08/10/2024 8:33 A M HUMIDIFIER MAINTENANCE WORKER Height 177.2 cm (5' 9.76) 08/10/2024 8:33 AM CS T Body Mass Index 29.52 08/10/2024 8:33 AM HUMIDIFIER MAINTENANCE WORKER Plan of Treatment Upcoming Encounters Date Type Department Care Team (Latest Contact Info) Description 02/18/2025 11:00 AM CDT Virtual Visit Department of Vascular Medicine in [place], [place] [address] [place] [address] Sal Lenz M.D. [address] [place] [address] Discharge Disposition: Home or Self Care 03/19/2025 4:00 PM CDT Clinical Support [facility] in [place], [place] [address] [place] [address] Ishaan Edwards, L.Ac. Health Maintenance Due Date Last Done Comments CT Colonography 1949 Cologuard 1950 FIT 1950 Pneumococcal vaccine (50+ years) (1 of 1 - PCV) 1999 Zoster Vaccines (1 of 2) 1999 DTaP,Tdap,and Td Vaccines (3 - Td or Tdap) 02/22/2022 02/23/2012, 11/03/2010 COVID-19 Vaccine (3 - season) 2024 12/08/2020, 11/17/2020 RSV vaccine - (32-36 weeks) or 60+ years (1 - 1-dose 75+ series) 2024 Influenza Vaccine (#1) 2024 Depression Screening (Annual PHQ-2) 07/29/2024 Fall Risk Screen (Annual) 07/29/2024 Potassium Level 09/03/2024 09/03/2023, 03/2024, 01/08/2013, Additional history exists Sodium Level 09/03/2024 09/03/2023, 03/2024, 01/08/2013, Additional history exists Creatinine Level (Kidney Function Test) 06/30/2025 06/30/2024, 09/03/2023, 08/07/2023, Additional history exists Office Visit for Blood Pressure Check / Re-check 08/10/2025 08/10/2024 Fasting Glucose for Diabetes Screening 09/03/2026 09/03/2023, 08/06/2023, 01/08/2013, Additional history exists Lipid (Cholesterol) Screening 11/03/2028 11/04/2023, 08/06/2023, 07/29/2010 (Performed elsewhere) Colonoscopy 08/13/2033 08/13/2023, 07/2010 (Performed elsewhere) Colorectal Cancer Screening 08/13/2033 Abdominal Aortic Aneurysm (AAA) Screen Discontinued 10/27/2012, 02/23/2012 Hepatitis B Screening Discontinued 10/27/2012 IPV Vaccines Aged Out No longer eligi ble based on patient's age to complete this topic Medical Devices Implanted Type Area Pipe Joints Supervisor Device Identifier Shelf Expiration Date Model / Serial / Lot Hardware E.G. Pins/Screws/Rods Hardware e.g. pins/screws/ rods Left: Femur Description:Steel julianne left f emur Syn. Screw Lck Stardrive 5.0x34 - [place] [id number] Implanted:Qty: 1 on 02/23/2012 Hardware e.g. pins/screws/ rods Depuy Synthes Description:Device Manufactu rer - Synthes. Device Status Text - [id number]. Guide Wire-Synthes 2.5 X 950 - [place] [id number] Implanted:Qty: 1 on 02/23/2012 Hardware e.g. pins/screws/ rods Depuy Synthes Description:Device Manufactu rer - Synthes. Device Status Text - HARDWARE-03801. Syn. Screw Lck Stardrive 5.0x48 - [place] [id number] Implanted:Qty: 1 on 02/23/2012 Hardware e.g. pins/screws/ rods Depuy Synthes Description:Device Manufactu rer - Synthes. Device Status Text - HARDWARE-62961. Syn. Screw Lck Stardrive 5.0x54 - [place] [id number] Implanted:Qty: 1 on 02/23/2012 Hardware e.g. pins/screws/ rods Depuy Synthes Description:Device Manufactu rer - Synthes. Device Status Text - HARDWARE-20049. Syn Sleeve Outer Protection 12.0 Mm - [place] [id number] Implanted:Qty: 1 on 02/23/2012 Hardware e.g. pins/screws/ rods Depuy Synthes Description:Device Manufactu rer - Synthes. Device Status Text - [id number]. Syn. Screw Lck Stardrive 5.0x46 - [place] [id number] Implanted:Qty: 2 on 02/23/2012 Hardware e.g. pins/screws/ rods Depuy Synthes Description:Device Manufactu rer - Synthes. Device Status Text - HARDWARE-96858. Syn. Screw Lck Stardrive 5.0x50 - [place] [id number] Implanted:Qty: 1 on 02/23/2012 Hardware e.g. pins/screws/ rods Depuy Synthes Description:Device Manufactu rer - Synthes. Device Status Text - HARDWARE-65817. Guide Wire-Synthes 3.2 X 400 - [place] [id number] Implanted:Qty: 2 on 02/23/2012 Hardware e.g. pins/screws/ rods Depuy Synthes Description:Device Manufactu rer - Synthes. Device Status Text - HARDWARE-25497. Guide Wire-Synthes Ball Tip 2.5 X 950 - [place] [id number] Implanted:Qty: 1 on 02/23/2012 Hardware e.g. pins/screws/ rods Depuy Synthes Description:Device Manufactu rer - Synthes. Device Status Text - HARDWARE-51465. Syn. Screw Lck Stardrive 5.0x40 - [place] [id number] Implanted:Qty: 1 on 02/23/2012 Hardware e.g. pins/screws/ rods Depuy Synthes Description:Device Manufactu rer - Synthes. Device Status Text - HARDWARE-76040. Syn.Tibial Nail-Ex Sandy [id number] W Bend - [place] [id number] Implanted:Qty: 1 on 02/23/2012 Hardware e.g. pins/screws/ rods Depuy Synthes Description:Device Manufactu rer - [employer]. Device Status Text - HARDWARE-[id number]. K-Wire Smooth S.S. Single 9 .062 - [place] [id number] Implanted:Qty: 4 on 02/23/2012 Hardware e.g. pins/screws/ rods Nicole Description:Device Manufactu rer Karma Mason.. Device Status Text - HARDWARE-9295. Screw-Asnis Sandy F Thrd 5 X 55mm - [place] [id number] Implanted:Qty: 1 on 02/27/2012 Hardware e.g. pins/screws/ rods Nicole Description:Device Manufactu rer - Nicole Mason.. Device Status Text - HARDWARE-[id number]. Screw-Asnis Sandy P Thrd 5 X 75mm - [place] [id number] Implanted:Qty: 1 on 02/27/2012 Hardware e.g. pins/screws/ rods [place] Description:Device Manufactu rer - Nicole Mason.. Device Status Text - HARDWARE-847153. Screw-Asnis Sandy P Thrd 5 X 70mm - [place] [id number] Implanted:Qty: 2 on 02/27/2012 Hardware e.g. pins/screws/ rods Nicole Description:Device Manufactu rer - Nicole Mason.. Device Status Text - HARDWARE-709251. Screw-Asnis Sandy P Thrd 5 X 50mm - [place] [id number] Implanted:Qty: 1 on 02/27/2012 Hardware e.g. pins/screws/ rods [place] Description:Device Manufactu rer - Nicole Amson.. Device Status Text - HARDWARE-[id number]. Guide Wire-Asnis 2.0 X 150mm - [place] [id number] Implanted:Qty: 5 on 02/27/2012 Hardware e.g. pins/screws/ rods Nicole Description:Device Manufactu rer - Nicole-Ortho. Device Status Text - HARDWARE-779196. Screw-Asnis Sandy F Thrd 5 X 70mm - [place] [id number] Implanted:Qty: 1 on 02/27/2012 Hardware e.g. pins/screws/ rods Nicole Description:Device Manufactu rer - [place] Mason.. Device Status Text - HARDWARE-097966. Guide Wire-Asnis Smooth 2.0 X 150mm - [place] [id number] Implanted:Qty: 1 on 09/16/2012 Hardware e.g. pins/screws/ rods Nicole Description:Device Manufactu rer - Nicole Mason.. Device Status Text - HARDWARE-[id number]. Ocular Lens-12/27/2017 Implanted:2017 (Quantity not on file) Ocular Lens Bilatera l: Eye Procedures Procedure Name Priority Date/Time Associated Diagnosis Comments CREATININE WITH EGFR, S/P Routine 06/30/2024 9:11 AM HUMIDIFIER MAINTENANCE WORKER Amputation Leg Below Knee Status Post Left (HCC) Atherosclerosis Of [place] Arteries Of Extremities With Intermittent Claudication Left Leg (HCC) ELECTROLYTE (CHEM 4) PANEL, S/P Routine 01/08/2013 5:32 AM CDT HEPATITIS B SURFACE ANTIGEN Routine 10/27/2012 10:16 PM CDT US ABDOMEN LIMITED Routine 10/27/2012 4: 21 PM CDT from Last 3 Months or Most Recently Relevant to Health Maintenance Results * Creatinine with Estimated GFR (06/30/2024 9:11 AM HUMIDIFIER MAINTENANCE WORKER) Creatinine 1.18 0.74 - 1.35 mg/dL 06/30/2024 10:10 AM HUMIDIFIER MAINTENANCE WORKER DTL Estimated GFR (eGFR) 64 >=60 mL/min/BSA 06/30/2024 10:10 AM HUMIDIFIER MAINTENANCE WORKER DTL Comment: Estimated GFR calculated using the 2020 CKD_EPI creatinine equation. Blood (Blood, Venous) 06/30/2024 9:11 AM HUMIDIFIER MAINTENANCE WORKER 06/30/2024 9:48 AM HUMIDIFIER MAINTENANCE WORKER Sal Lenz M.D. LAB BLOOD ADD-ON Final Resu lt [facility] [address] DTL [facility] [address] [place] [address] * Electrolyte (Chem 4) Panel (01/08/2013 5:32 AM CDT) Sodium, S 140 135 - 145 MMOL/L [facility] Potassium, S 4.2 3.6 - 5.2 MMOL/L [facility] Creatinine 1.0 0.8 - 1.3 MG/DL [facility] eGFR Non-Black/Afric an Kazakh >60 >60 ML/MIN/BSA [facility] eGFR-Black/Afri can Kazakh >60 >60 ML/MIN/BSA [facility] BUN (Blood Urea Nitrogen), S 14 8 - 24 MG/DL [facility] Chloride, S 104 100 - 108 MMOL/L [facility] HX Bicarbonate, P/S 25 22 - 29 MMOL/L [facility] Anion Gap 11 7 - 15 [facility] Glucose, S 90 70 - 140 MG/DL [facility] 01/08/2013 5:32 AM CDT 01/08/2013 5:32 AM CDT Trino Martin III, M.D. LAB BLOOD ADD-ON Final Result Performing Organization Address City/[facility]/ZIP Co de Phone Number [facility] [address] * Hepatitis B Surface Antigen (10/27/2012 10:16 PM CDT) HBs Antigen, S Negative Negative [facility] 10/27/2012 10:1 6 PM CDT 10/27/2012 10:16 PM CDT us Historical Provider LAB MICROBIOLOGY - BLOOD ORD ERABLES Final Result Performing Organization Address City/State/[facility] Co de Phone Number [facility] [address] [place], [place] [address] * US Abdomen Limited (10/27/2012 4:21 PM CDT) Anatomical Region Laterality Modality Abdomen N/A Ultrasound 10/27/2012 4:21 PM CDT Narrative 10/27/2012 4:38 PM CDT 27-Oct-2012 16:21:00 Exam: US Abdomen Limited Indications: ED EAC #3 RUQ - new jaundice ORIGINAL REPORT - 27-Oct-2012 16:38:00 Limited Right Upper Quadrant Ultrasound: Gallbladder.....Marked gallbladder wall thickening up to 1.4 cm with increased vascularity. The lumen contains normal appearing anechoic bile without sludge or shadowing stones. This appearance could be secondary to hepatitis or other liver dysfunction. Acalculous cholecystitis is less likely. Intrahepatic ducts:.....Not dilated. Common duct:............Not dilated. Aorta:..................Normal caliber. Findings called to Harlan Nielsen in the ED at [phone] at 4:30 p.m. on 10/27/2012. Electronically signed by: Vijaya Choi MD [id number] 27-Oct-2012 16:38 Henrry Gray MD [phone] 27-Oct-2012 16:38 Procedure Note Sania Choi M.D. - 10/25/2017 27-Oct-2012 16:21:00 Exam: US Abdomen Limited Indications: ED EAC #3 RUQ - new jaundice ORIGINAL REPORT - 27-Oct-2012 16:38:00 Limited Right Upper Quadrant Ultrasound: Gallbladder.....Marked gallbladder wall thickening up to 1.4 cm withincreased vascularity. The lumen contains normal appearing anechoic bilewithout sludge or shadowing stones. This appearance could be secondary tohepatitis or other liver dysfunction. Acalculous cholecystitis is lesslikely. Intrahepatic ducts:.....Not dilated. Common duct:............Not dilated. Aorta:..................Normal caliber. Findings called to Harlan Nielsen in the ED at [phone] at 4:30 p.m. on10/27/2012. Electronically signed by: Vijaya Choi MD [id number] 27-Oct-2012 16:38 Henrry Gray MD [id number] 16:38 Maria L ADAMS, PEdgardo-Poly., M.S. [facility] [place] OCEDURES Final Result from Last 3 Months or Most Recently Relevant to Health Maintenance Insurance MEDICARE [facility] Care Teams Skate Shop Attendant Relationship Specialty Start Date End Date Elsewhere, Pcp PCP - General Internal Medicine 07/11/23
--- OUTSIDE RECORDS SUMMARY | 2024-12-30 19:38 | XMS_ITS | Encounter Summary ---
Author Name [facility] Address [address] [place] [address] Care Team Providers Care Nurse Wound Name Role Phone CHEVYTroyCATARINO Primary Care Provider Unavailabl e Selected Encounter This section includes the information on record at [place] for the Encounter. Date/Time Encounter Type Encounter Description Reason Pro vider Source IHE Encounter Template Text not used by [place] Advance Directives: All historical and current Section Date Range: From patient's date of to the date document was created. This section includes ALL of a patient's completed or amended [place] Advance and Rescinded Directives. The entries below indicate that a directive exists for the patient, but an actual copy is not included with this document. The data comes from all [place] facilities. Date Advance Directives Provider Source Sep 08, 2024 ADVANCE DIRECTIVE MISTY DELGADILLO [facility] Sep 08, 2024 ADVANCE DIRECTIVE DISCUSSION JOANIE DELGADILLO [facility]
--- NOTE | 2024-12-30 19:55 | ED.GENADULT ---
HPI - General Adult General Chief complaint: Chest Pain Stated complaint: chest pain Time Seen by Provider: 12/30/24 19:54 History of Present Illness HPI narrative: Pt had left chest pain this morning that woke him up and then the pain disappeared. He ate dinner and the chest pain pain came back 5/10 with pain up and down his arms and across entire chest this time . 74-year-old man presenting to the emergency department with concern of some chest pain. Apparently woke this morning with some left-sided chest ache and this discomfort resolved. Following dinner this evening it returned about 5/10. Describes it as an ache and radiates across his low chest he gestures and then up into his left shoulder. No shortness of breath or lightheadedness. No noted nausea. At the time of this interview it is nearly gone. He says he has been having a lot of abdominal gas lately. No cough or cold symptoms. No fever. Does not usually have heartburn. Related Data Home Medications ?Medication ?Instructions ?Recorded ?Confirmed losartan 50 mg-hydrochlorothiazide 1 tab PO DAILY 12/30/24 12/30/24 12.5 mg tablet Allergies Allergy/AdvReac Type Severity Reaction Status Date / Time cefazolin AdvReac Intermediate Verified 12/30/24 19:50 metronidazole AdvReac Intermediate Verified 12/30/24 19:50 Review of Systems Status of ROS: Reports: 6 or more systems reviewed and unremarkable except as noted in History and below [facility] Medical History Basal cell carcinoma ?C44.91 - Basal cell carcinoma of skin, unspecified (ICD-10) Cataract ?H26.9 - Unspecified cataract (ICD-10) Hypertension ?I10 - Essential (primary) hypertension (ICD-10) Surgical History S/P BKA (below knee amputation) unilateral ?Z89.519 - Acquired absence of unspecified leg below knee (ICD-10) History of left below knee amputation ?Z89.512 - Acquired absence of left leg below knee (ICD-10) Social History Narrative: Patient denies smoking. He lives with his daughter and her family. Highest level of school completed/degree received: Associate degree: occupational, technical, vocational program Smoking Status: Never smoker Do you use any of these nicotine containing products: None Second hand tobacco smoke exposure: Yes (year ) How often do you have a drink containing alcohol: 2-3 times a week Alcohol type: beer, wine and hard liquor How often do you have six or more drinks on one occasion: Never AUDIT-C Alcohol total score: 3 Non-prescribed substance use: denies use Caffeine: Yes (ice tea) service: Yes Exam Narrative: Exam Narrative: Flatter affect. Here with daughter think. Generally mildly uncomfortable abdomen. Soft. [id number] amputation of the left leg. Compression stocking on right with mild pitting edema. Heart in regular rate and rhythm. Distant. Lungs are clear. Const: Vital Signs, click to edit/add: Vital Signs - 24 hr 12/30/24 19:45 12/30/24 20:05 12/30/24 20:06 Temperature 97.4 F L Pulse Rate 68 Respiratory Rate 16 16 Blood Pressure 136/91 H Blood Pressure [Ri ght Upper Arm] 167/94 H Pulse Oximetry 98 98 98 Oxygen Delivery Me thod Room Air 12/30/24 20:21 12/30/24 20:39 12/30/24 20:45 Temperature Pulse Rate 64 68 Respiratory Rate 11 L 14 Blood Pressure 163/97 H 144/94 H Blood Pressure [Ri ght Upper Arm] Pulse Oximetry 97 98 Oxygen Delivery Me thod 12/30/24 21:00 12/30/24 21:00 12/30/24 21:06 Temperature Pulse Rate 66 66 Respiratory Rate 9 L 12 Blood Pressure 163/97 H 142/96 H Blood Pressure [Ri ght Upper Arm] Pulse Oximetry 99 100 Oxygen Delivery Me thod Documenting provider has reviewed patient's vital signs: yes Course Vital Signs Vital signs: Initial Vital Signs Respiratory Effort Normal 12/30/24 19:36 Respiratory Depth Normal 12/30/24 19:36 Respiratory Pattern Normal 12/30/24 19:36 Vital Signs Temperature 97.4 F L 12/30/24 19:45 Respiratory Rate 16 12/30/24 19:45 Blood Pressure 167/94 H 12/30/24 19:45 Pulse Oximetry 98 12/30/24 19:45 Oxygen Delivery Method Room Air 12/30/24 19:45 Temperature 97.4 F L 12/30/24 19:45 Pulse Rate 66 12/30/24 21:06 Respiratory Rate 12 12/30/24 21:06 Blood Pressure 142/96 H 12/30/24 21:06 Pulse Oximetry 100 12/30/24 21:06 Oxygen Delivery Method Room Air 12/30/24 19:45 Medications Administered Medications: Generic Name Dose Route Start Last Admin Trade Name Freq PRN Reason Stop Dose Admin Ticagrelor 180 mg 12/30/24 22:12 12/30/24 22:21 Ticagrelor 90 Mg Tablet PO 12/30/24 22:13 180 mg ONCE ONE Administration Discontinued Medications Generic Name Dose Route Start Last Admin Trade Name Freq PRN Reason Stop Dose Admin Sodium Chloride 1,000 mls @ 1,000 mls/hr 12/30/24 20:33 12/30/24 21:41 0.9 % Sodium Chloride 1000 Ml IV 12/30/24 21:32 Infused .Q1H ONE Infusion Potassium Bicarbonate 50 meq 12/30/24 21:26 12/30/24 21:40 Potassium Bicarb 25 Meq Effervescent Tab PO 12/30/24 21:27 50 meq ONCE ONE Administration Medical Decision Making MDM Narrative Medical decision making narrative: Will do a cardiac evaluation here. And monitor. Initial EKG independently reviewed by me looks to show some very subtle ST elevation less than a box in leads 2 and 3. PAC. Initial troponin is negative. One-view chest x-ray independently reviewed by me looks to be WNL. During time of monitoring did have a 6 or 2nd run of would look like V-tach. Unfortunately unable to see initiation of this rhythm. Was moved to a different room with pads and continue to monitor. Stable pressures. Labs show otherwise a slightly low potassium perhaps in the setting of V-tach or similar. Given potassium IV and oral. Magnesium is 2.2. Did discuss case with cardiology still waiting on repeat 2 hour troponin. Concerns noted also of aVL with T-wave inversion. Repeat EKG at 2 hours. more clearly shows changes prompting elevation to level 1 status. Protocols activated. Did have another brief run of V-tach or V flutter as Cardiology had referred. Oral metoprolol was changed to IV metoprolol 5 mg. In later conversation he reveals that pain had recurred intensely during time in the emergency department but did not say anything. We are able to have ambulance here very quickly believe that this will be faster than air in this case. Medical Records Medical records reviewed: Yes I reviewed the patient's medical records Lab Data Lab results reviewed: Yes I reviewed the patient's lab results Labs: Lab Results 12/30/24 12/30/24 12/30/24 Range/Units 19:45 19:52 20:34 WBC 8.38 (4.50-11.00) K/uL RBC 5.27 (4.30-5.90) m/uL Hgb 16.0 (13.5-17.5) gm/dL Hct 47.9 (37.0-53.0) % MCV 91 (80-100) fL MCH 30 (26-34) pg MCHC 33 (32-36) gm/dL RDW Coeff of Jonah 12.4 (11.5-15.5) % Plt Count 266 (140-440) K/uL Neut % (Auto) 46.1 (42.0-72.0) % Lymph % (Auto) 42.1 (20-44) % [place] % (Auto) 9.4 (0.0-11.0) % Eos % (Auto) 1.8 (0.0-7.0) % Baso % (Auto) 0.5 (0.0-3.0) % Neut # (Auto) 3.86 (1.7-7.0) K/uL Lymph # (Auto) 3.53 H (0.90-2.90) K/uL [place] # (Auto) 0.80 (0.00-0.90) K/UL Eos # (Auto) 0.15 (0.00-0.50) K/uL Baso # (Auto) 0.04 (0.00-0.30) K/uL Abs Immat Gran (auto) 0.01 (0.00-0.30) K/uL Imm/Tot Granulo (auto) 0.1 % D-Dimer Quant (PE/DVT) 0.29 (0.00-0.50) ug/ml Sodium 140 (135-149) mmol/L Potassium 3.7 (3.6-5.1) mmol/L Chloride 104 (96-114) mmol/L Carbon Dioxide 27 (20-32) mmol/L Anion Gap 9 (7-15) mEq/L BUN 22 (7-30) mg/dL Creatinine 1.1 (0.5-1.5) mg/dL Estimated Creat Clear 59.91 Estimated GFR 70 ml/min Glucose 141 H (60-115) mg/dL Calcium 9.4 (8.4-10.6) mg/dL Magnesium 2.2 (1.5-2.6) mg/dL Total Bilirubin 0.5 (0.1-1.5) mg/dL Direct Bilirubin 0.2 (0.0-0.5) mg/dL AST 32 (12-35) U/L ALT 20 (4-50) U/L Alkaline Phosphatase 104 (40-150) U/L Troponin I < 0.01 (0.01-0.04) ng/mL C-Reactive Protein < 0.5 L (0.5-1.0) mg/dL NT-Pro-B Natriuret Pep 54 (See Note) pg/mL Total Protein 7.2 (6.0-8.3) g/dL Albumin 4.4 (3.3-5.0) g/dL Lab Acknowledgement Test Added POC Troponin I 0.01 (0.01-0.04) ng/ml Critical Care Time Critical Care Time Critical Care Time: Yes Attestation: The patient required my highest level preparedness to intervene emergently and I personally spent this critical care time directly and personally managing the patient. This critical care time included: Obtaining a history; Examining the patient; Pulse oximetry; Ordering and reviewing of studies; Arranging urgent treatment with development of a management plan; Evaluation of patients response to treatment; Frequent reassessment discussions with other providers. This critical care time was performed to assess and manage the high probability of imminent life-threatening deterioration that could result in multiorgan failure. It was exclusive of separate billable procedures and treating other patients and teaching time. Total Critical Care Time in Minutes: 70 Discharge Plan Discharge Clinical Impression: Myocardial infarction Patient Disposition: [facility] Condition: Guarded
[2024-12-30 20:04] LABS: Troponin, Point-of-Care* 0.01 ng/ml (0.01-0.04)
--- NOTE | 2024-12-30 20:04 | CRLHL7_ITS ---
For Patients: As a result of the Century Cures Act, medical imaging exams and procedure reports are released immediately into your electronic medical record. You may view this report before your referring provider. If you have questions, please contact your health care provider. INDICATION: Anterior chest pain. TECHNIQUE: Chest 1 views. COMPARISON: None. FINDINGS: Cardiovascular and mediastinum: Heart size is normal. Unremarkable mediastinum. Lungs and pleural spaces: Lungs are clear. No sign of infiltrate or mass. No sign of pleural effusion. No pneumothorax. Bones and soft tissues: No significant findings. IMPRESSION: No acute or significant findings. Dictated by Brad David MD @ 12/30/2024 8:27:42 PM (Electronically Signed)
[2024-12-30 20:18] LABS: Basophils Absolute Auto 0.04 K/uL (0.00-0.30); Basophils Percent Auto 0.5 % (0.0-3.0); Eosinophils Absolute Auto 0.15 K/uL (0.00-0.50); Eosinophils Percent Auto 1.8 % (0.0-7.0); Hematocrit 47.9 % (37.0-53.0); Immature Granulocytes Abs Auto 0.01 K/uL (0.00-0.30); Immature Granulocytes Pct Auto 0.1 %; Lymphocytes Absolute Auto 3.53 K/uL (0.90-2.90); Lymphocytes Percent Auto 42.1 % (20-44); Mean Corpuscular HGB Conc 33 gm/dL (32-36); Mean Corpuscular Hemoglobin 30 pg (26-34); Mean Corpuscular Volume 91 fL (80-100); Monocytes Percent Auto 9.4 % (0.0-11.0); Neutrophils Absolute Auto 3.86 K/uL (1.7-7.0); Neutrophils Percent Auto 46.1 % (42.0-72.0); Platelet Count* 266 K/uL (140-440); RDW Coefficient of Variation % 12.4 % (11.5-15.5); Red Blood Count 5.27 m/uL (4.30-5.90); White Blood Count* 8.38 K/uL (4.50-11.00)
[2024-12-30 20:32] LABS: Slide Review Reflex No
[2024-12-30 20:36] LABS: Albumin* 4.4 g/dL (3.3-5.0); Chloride* 104 mmol/L (96-114); Potassium* 3.7 mmol/L (3.6-5.1); Sodium* 140 mmol/L (135-149)
[2024-12-30 20:38] LABS: Blood Urea Nitrogen* 22 mg/dL (7-30); Creatinine* 1.1 mg/dL (0.5-1.5); Est. Creatinine Clearance* 59.91; Estimated Glomerular Filt Rate 70 ml/min
[2024-12-30 20:39] LABS: Alanine Aminotransferase* 20 U/L (4-50); Alkaline Phosphatase* 104 U/L (40-150); Anion Gap 9 mEq/L (7-15); Aspartate Amino Transferase* 32 U/L (12-35); Bilirubin Direct* 0.2 mg/dL (0.0-0.5); Bilirubin Total* 0.5 mg/dL (0.1-1.5); Carbon Dioxide* 27 mmol/L (20-32); Total Protein* 7.2 g/dL (6.0-8.3)
[2024-12-30 20:40] LABS: Calcium* 9.4 mg/dL (8.4-10.6); Glucose* 141 mg/dL (60-115)
[2024-12-30] MEDS: 0.9 % SODIUM CHLORIDE 1000 ml 1,000 ML IV (20:41)
[2024-12-30 20:45] LABS: C Reactive Protein* < 0.5 mg/dL (0.5-1.0)
[2024-12-30 20:57] LABS: NT Pro B Type NatriureticPept* 54 pg/mL (See Note); Troponin I* < 0.01 ng/mL (0.01-0.04)
[2024-12-30 21:00] LABS: D Dimer Quantitative* 0.29 ug/ml (0.00-0.50)
[2024-12-30 21:12] LABS: Magnesium* 2.2 mg/dL (1.5-2.6)
[2024-12-30] MEDS: POTASSIUM BICARB 25 MEQ EFFERVESCENT TAB 50 MEQ PO (21:40)
[2024-12-30] MEDS: TICAGRELOR 90 MG TABLET 180 MG PO (22:21)
[2024-12-30] MEDS: ASPIRIN 81 MG TAB.CHEW 324 MG PO (22:23)
[2024-12-30] MEDS: NITROGLYCERIN 0.4 MG TAB.SUBL SUBLINGUAL (22:24)
[2024-12-30] MEDS: METOPROLOL TARTRATE 1 MG/ML inj 5 MG IVP (22:28)
[2024-12-30] MEDS: HEPARIN 5,000 UNIT/0.5 ML INJ 4000 UNIT IVP (22:30)
[2024-12-30] MEDS: HEPARIN 25,000 UNIT/500 ML BAG 18 UNIT IV (22:31)
[2024-12-30 22:37] LABS: Troponin, Point-of-Care* 0.02 ng/ml (0.01-0.04)
[2024-12-30 23:49] LABS: INR 0.99 (0.91-1.10); Partial Thromboplastin Time* 28 Seconds (23-33); Prothrombin Time 13.9 Seconds
[2025-01-01 09:25] LABS: Troponin, Point-of-Care* 0.02 ng/ml (0.01-0.04)
== END 2024-12-30 22:53 | disposition short-term general hospital (02) ==
PROVIDERS: Emergency Provider Family Medicine; PCP Family Medicine
DX: I21.9 Acute myocardial infarction, unspecified (principal)
CPT/HCPCS: 36415; 71045; 80048; 80076; 83735; 83880; 84484; 85025; 85379; 85610; 85730; 86140; 93005; 94761; 96365; 96375; 99284; 99291; A9270; J1644; J7030

== ENCOUNTER 2024-12-30 22:30 | Outpatient (CLI) | payer MEDICARE, SELFPAY | END 2024-12-30 22:31 | disposition home or self-care (01) | LOC: AMB 12-31 14:37 | PROVIDERS: PCP Family Medicine; Visit Provider Family Medicine | DX: I21.3 ST elevation (STEMI) myocardial infarction of unspecified site (principal) | CPT/HCPCS: A0425; A0434 ==

== ENCOUNTER 2025-04-28 13:35 | Emergency (ER) | payer MEDICARE, SELFPAY ==
--- OUTSIDE RECORDS SUMMARY | 2025-03-19 11:25 | XMS_ITS | Encounter Summary ---
Author Organization [facility] Address [address] [place] [address] Care Team Providers Care Bright Cutter Name Role Phone Elsewhere, Pcp Primary Care Provider Unavailabl e Encounter Details Date Type Department Care Team (Late st Contact Info) Description 03/19/2025 11:25 AM CDT Ancillary Procedure Department of Vascular Social History Tobacco Use Types Packs/Day Years Used Date Smoking Tobacco: Never Smokeless Tobacco: Never Hunger Vital Sign Answer Date Recorded Within the past 12 months, y ou worried that your food would run out before you got the money to buy more. Never true 03/15/20 25 Within the past 12 months, t he food you bought just didn't last and you didn't have money to get more. Never true 03/15/2025 PRAPARE - Transportation Answer Date Re corded In the past 12 months, has l ack of transportation kept you from medical appointments or from getting medications? No 02/26 In the past 12 months, has l ack of transportation kept you from meetings, work, or from getting things needed for daily living? No 03/15/2025 [facility] Utilities Answer Date Recorded In the past 12 months has e electric, gas, oil, or water company threatened to shut off services in your home? No 03/15/2025 Housing Stability Answer Date Recorded What is your living situation today? 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 06/29/2025 1:00 PM FURNACE ROOM SUPERVISOR Office Visit Department of Vascular Medicine in [place], [place] [address] [place] [phone] Sal Lenz M.D. [address] [place] [address] Discharge Disposition: Home or Self Care documented as of this encounter Procedures Procedure Name Priority Date/Time Associated Diagnosis Comments VASCULAR IMAGE EXAM Routine 03/19/2025 1 1:25 AM CDT documented in this encounter Results * Leg-Vascular Image Exam (03/19/2025 11:25 AM CDT) 03/19/2025 11:2 5 AM CDT Narrative [facility] - 03/19/2025 11:27 AM CDT This order has been created and auto-finalized to support the import of images acquired without order. The clinical documentation to support these images can be found on the encounter that produced images. us Provider Not In System IMG NON RAD IMAGING PROCE DURES Final Result [facility] NA documented in this encounter Visit Diagnoses Not on filedocumented in this encounter Care Teams Bright Cutter Relationship Specialty Start Date End Date Elsewhere, Pcp PCP - General Internal Medicine 07/11/23 documented as of this encounter
--- OUTSIDE RECORDS SUMMARY | 2025-03-19 11:30 | XMS_ITS | Encounter Summary ---
Author Organization [facility] Address [address] [place] [id number] Care Team Providers Care Spray Blender Name Role Phone Elsewhere, Pcp Primary Care Provider Unavailabl e Reason for Referral * Outpatient (Routine) - Authorized Specialty Diagnoses / Procedures Referred By Marylou oneal Referred To Contact Vascular Medicine Sal Lenz M.D. [address] [place] [phone] Phone: tel: fax: [facility] Referral ID Status Reason Start Date Expiration Date V isits Requested Visits Authorized [id number] Authorized 03/19/2025 09/18/2026 1 1 Reason for Visit * Outpatient (Routine) - Closed Specialty Diagnoses / Procedures Referred By Marylou oneal Referred To Contact Vascular Medicine Sal Lenz M.D. [address] [place] [address] Phone: tel: fax: [facility] Referral ID Status Reason Start Date Expiration Date Visits Re quested Visits Authorized [id number] Closed 02/18/2025 08/20/2026 1 1 Encounter Details Date Type Department Care Team (Latest Contact Info) Description 03/19/2025 11:30 AM CDT Office Visit Department of Vascular Medicine in [place], [place] [address] [place] [phone] Sal Lenz M.D. [address] [place] [phone] Atherosclerosis Of [place] Arteries Of Extremities With Intermittent Claudication Left Leg (Primary Dx); Amputation Leg Below Knee Status Post Left (HCC); Pain In Left Lower Leg Discharge Disposition: Home or Self Care Social History Tobacco Use Types Packs/Day Years [...] things needed for daily living? No 03/15/2025 [employer] Utilities Answer Date Recorded In the past 12 months has [employer] electric, gas, oil, or water [employer] threatened to shut off services in your home? No 03/15/2025 Housing Stability Answer Date Recorded What is your living situation today? 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 - 03/19/2025 11:30 AM CDT REFERRAL SOURCE Sal Lenz M.D. [address] [place] [phone] SUBJECTIVE CHIEF COMPLAINT / REASON FOR VISIT Mr. Resendiz is seen for scheduled [facility] HISTORY OF PRESENT ILLNESS Mr. Resendiz is a 74 y.o. male chronic pain status post left transtibial amputation, utilizing prosthetic, recent myocardial infarction requiring coronary stent placement, he is doing cardiac rehab 3 times per week, utilizing a treadmill, exercise bike and elliptical, overall step count has increased, he has lost approximately 10 lb post myocardial infarction. He has had 1 session of acupuncture. He states at original consultation in June of 2024, pain was a 10 of 10, currently it is 7-8 of 10, pain still improved when removing lower extremity prosthetic, he has had this modified severaltimes with Companion Caregiver. He is utilizing arterial pump 1-3 hours on most days. He has no left lower extremity edema The following portions of the patient's history were reviewed and updated as appropriate: allergies, current medications, family history, medical history, social history, surgical history, problem list, labs, diagnostics tests. I reviewed the pertinent clinical notes in the electronic health record. OBJECTIVE PHYSICAL EXAMINATION BP 102/67 (BP Location: Left arm, Patient Position: Sitting) Pulse 61 Ht 177.2 cm Wt 84 kg BMI 26.75 kg/m?? General: 74-year-old male, conversant Extremities: Status post left transtibial amputation, no ulcerations, mild callus of the distal aspect tibial margin , nonpalpable left popliteal pulse. No evidence of cellulitis DIAGNOSTIC REVIEW Lab Results Component Value Date HGBA1C 5.8 12/31/2024 Lab Results Component Value Date CREATININE 1.24 (H) 01/02/2025 No results found for this or any previous visit (from the past 72 hours). All labs and diagnostic studies were reviewed. ASSESSMENT / PLAN #1 Atherosclerosis Of [place] Arteries Of Extremities With Intermittent Claudication Left Leg #2 Amputation Leg Below Knee Status Post Left (HCC) #3 Pain In Left Lower Leg Chronic pain left lower extremity status post transtibial amputation, mild improvement in the last several months, recent myocardial infarction requiring coronary artery stent placement, treated through the [facility], currently doing cardiac rehab in [facility], utilizing elliptical, exercise bike, treadmill, step count has overall increased. I advised that he be seen in acupuncture on a weekly basis over the course of 10-12 weeks dependenton insurance coverage for best outcome for pain mitigation. The patient was instructed to seek medical attention with signs or symptoms of infection (fever, chills, redness, increased warmth) or signs or symptoms of progressive ischemia (cyanosis, increased pain, or a cold extremity). He will be seen in follow up in 12 weeks I personally spent 12 minutes in care of the patient today. Time includes both non face to face andface to face patient care. Sal Lenz M.D. documented in this encounter Plan of Treatment Upcoming Encounters Date Type Department Care Team (Latest Contact Info) Description 04/29/2025 2:00 PM CDT Clinical Support [facility] in [place], [place] [address] [place] [address] Vira Lutz L.Ac. 06/29/2025 1:00 PM WASTEWATER PLANT CIVIL ENGINEER Office Visit Department of Vascular Medicine in [place], [place] [address] [place] [phone] Sal Lenz M.D. [address] [place] [phone] Discharge Disposition: Home or Self Care Scheduled Referrals Name Type Priority Associated Diagnoses Orde r Schedule Vascular Medicine office visit (clinic) Outpatient Referral Routine Expected: 06/19/2025, Expires: 06/19/2026 documented as of this encounter Visit Diagnoses Diagnosis Atherosclerosis Of [place] Arteries Of Extremities With Intermittent Claudication Left Leg- Primary Amputation Leg Below Knee Status Post Left (HCC) Pain In Left Lower Leg documented in this encounter Care Teams Spray Blender Relationship Specialty Start Date End Date Elsewhere, Pcp PCP - General Internal Medicine 07/11/23 documented as of this encounter
--- OUTSIDE RECORDS SUMMARY | 2025-03-19 16:00 | XMS_ITS | Encounter Summary ---
Author Organization [facility] Address [address] [place] [address] Care Team Providers Care Data Architect Manager Name Role Phone Elsewhere, Pcp Primary Care Provider Unavailabl e Reason for Visit * Outpatient (Routine) - Authorized Specialty Diagnoses / Procedures Referred By Contmagda t Referred To Contact Diagnoses Pain Chronic Due To Trauma Peripheral Vascular Disease Lumbago With Sciatica Left Side Procedures [facility] Acupuncture [facility] in [place], [place] [address] [place] [address] Phone: tel: [facility] Referral ID Status Reason Start Date Expiration Date V isits Requested Visits Authorized [id number] Authorized 12/29/2024 03/31/2026 19 19 Encounter Details Date Type Department Care Team (Latest Contact Info) Description 03/19/2025 4:00 PM CDT Clinical Support [facility] [place], [place] [address] [place] [phone] Ishaan Edwards, L.Ac. Pain Chronic Due To Trauma; Peripheral Vascular Disease; Lumbago With Sciatica Left Side Social History Tobacco Use Types Packs/Day Years [...] things needed for daily living? No 03/15/2025 [facility] Utilities Answer Date Recorded In the past 12 months has th e electric, gas, oil, or water company threatened to shut off services in your home? No 03/15/2025 Housing Stability Answer Date Recorded What is your living situation today? 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 - 03/19/2025 4:00 PM CDT INDIVIDUAL ACUPUNCTURE TREATMENT Referral Source: No ref. provider found Supervised by: [place] [id number] SUBJECTIVE Chief Complaint: Left Leg Pain, Sciatica History of Present Illness Mr. Resendiz is a 74 y.o. male referred for evaluation and consideration of acupuncture treatment.Mr. Resendiz is seen in the outpatient setting. Their medical history is well documented, and relevant portions were reviewed and discussed at today's session. Follow-up Acupuncture Treatment 03/19/25 Ezequiel reports he's unsure if acupuncture was helpful after his initial treatment, but hesays it's been a two months, so it's difficult to tell. He would like to continue working on left left pain and sciatica. Previous Treatment: 12/29/24 Ezequiel comes in for an initial [...] With Sciatica Left Side This is treatment 2 of expected 20 treatments. Frequency: Acupuncture ordered [...] LV 3; GB 33, 32, 31 Other: Palmer Electrified: No Notes: Stimulation Intensity: Medium Needle Size: 0.20mm Adjunct Therapies Diathermy: Yes Cupping: No Other: Palmer Used: 13 Palmer Retrieved: 13 All needles used were retrieved and accounted for: Yes Total Needling Time: 30 minutes Additional notes: All acupuncture was preformed using Clean Needle Technique (CNT) per standard clinical protocols, including use of sterile needles and equipment, sanitization of areas on patient where therapy was applied, appropriate hand hygiene, and appropriate disposal of needles. Patient tolerated acupuncture without any complications and [...] and the www.[email or web address].org for locating a qualified nurse licensed practical in the local community. PATIENT EDUCATION Patient [...] Clinical Support [facility] in [place], [place] [address] [place] [address] Vira Lutz L.Ac. 06/29/2025 1:00 PM METAL BENDING MACHINE OPERATOR Office Visit Department of Vascular Medicine in [place], [place] [address] [place] [phone] Sal Lenz M.D. [address] [place] [phone] Discharge Disposition: Home or Self Care documented as of this encounter Visit Diagnoses Diagnosis Pain Chronic Due To Trauma Peripheral Vascular Disease Lumbago With Sciatica Left Side documented in this encounter Care Teams Data Architect Manager Relationship Specialty Start Date End Date Elsewhere, Pcp PCP - General Internal Medicine 07/11/23 documented as of this encounter
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
--- OUTSIDE RECORDS SUMMARY | 2025-04-07 14:00 | XMS_ITS | Encounter Summary ---
Author Organization [facility] Address [address] [place] [address] Care Team Providers Care Vp Care Management Name Role Phone Elsewhere, Pcp Primary Care Provider Unavailabl e Reason for Visit * Outpatient (Routine) - Authorized Specialty Diagnoses / Procedures Referred By Contmagda t Referred To Contact Diagnoses Pain Chronic Due To Trauma Peripheral Vascular Disease Lumbago With Sciatica Left Side Procedures [facility] Acupuncture Integrative Medicine and Health in [place], [place] [address] [place] [address] Phone: tel: [facility] Referral ID Status Reason Start Date Expiration Date V isits Requested Visits Authorized [id number] Authorized 12/29/2024 03/31/2026 19 19 Encounter Details Date Type Department Care Team (Latest Contact Info) Description 2025 2:00 PM CDT Clinical Support Integrative Medicine and Health in [place], [place] [address] [place] [address] Ishaan Edwards, L.Ac. Pain Chronic Due To [...] things needed for daily living? No 03/15/2025 [facility] Utilities Answer Date Recorded In the past 12 months has th e electric, gas, oil, or water company threatened to shut off services in your home? No 03/15/2025 Housing Stability Answer Date Recorded What is your living situation today? 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 - 2025 2:00 PM CDT INDIVIDUAL ACUPUNCTURE TREATMENT Referral Source: No ref. provider found Supervised by: [place] [id number] SUBJECTIVE Chief Complaint: Pain History of Present Illness Mr. Resendiz is a 75 y.o. male referred for evaluation and consideration of acupuncture treatment.Mr. Resendiz is seen in the outpatient setting. Their medical history is well documented, and relevant portions were reviewed and discussed at today's session. Follow-up Acupuncture Treatment 04/07/25 Ezequiel reports he hasn't noticed significant improvement in his leg pain symptoms, but does note he thinks he can wear his prosthetic for longer periods of time, especially while sitting, and can walk longer distances. He thinks weight loss and cardiac rehab could be factors in this improvement. We discussed that 4-5 treatments is usually a good time to consider if he would like to continue treatment or take a break and that we would continue with care as long as he was interested in pursuing acupuncture. Pain remains in right leg inferior to the knee. Previous Treatment: Nelda 03/25/25 Pt reports today with little improvement in pain with acupuncture. Local pain in area whereprosthetic attaches increases with increased activity like walking. Pain can radiate into lateral Lthigh. Today his pain is low/none existent d/t him removing prosthetic while driving, and he notes that the walk into the clinic wasn't far enough to cause pain. Pt reports good sleep- no complaints, little stress- unless driving in [place]. He notes that he is working out and adjusting diet per recommendations for heart. ASSESSMENT / PLAN #1 Pain Chronic Due To Trauma #2 Peripheral Vascular Disease #3 Lumbago With Sciatica Left Side This is treatment 4 of expected 20 treatments. Frequency: Acupuncture ordered [...] Position: supine Acupuncture Points Used: Set One: Left LV 8, SP 10, He Ding ST 34, SP 9, SP 8, ST 36, ST 37 Set Two: Right LV 8, SP 10, ST 34, SP 9, SP 6, ST 36, LV 3 Other: [place] Electrified: No Notes: Stimulation Intensity: Medium Needle Size: 0.20mm Adjunct Therapies Diathermy: BIOMAX 450 LED - RED+ 10%, AYLEEN 100%, Blue on Cupping: No Other: [place] Used: 15 [place] Retrieved: 15 All needles used were retrieved and accounted [...] and the www.NCCAOM.org for locating a qualified academic adviser in the local community. PATIENT EDUCATION Patient [...] Clinical Support Integrative Medicine and Health in [place], [place] [address] [place] [address] Vira Lutz L.Ac. 06/29/2025 1:00 PM ENROLLMENT MANAGEMENT MANAGER Office Visit Department of Vascular Medicine in [place], [place] [address] [place] [address] Sal Lenz M.D. [address] [place] [phone] Discharge Disposition: Home or Self Care documented as of this encounter Visit Diagnoses Diagnosis Pain Chronic Due To Trauma Peripheral Vascular Disease Lumbago With Sciatica Left Side documented in this encounter Care Teams Vp Care Management Relationship Specialty Start Date End Date Elsewhere, Pcp PCP - General Internal Medicine 07/11/23 documented as of this encounter
--- OUTSIDE RECORDS SUMMARY | 2025-04-14 11:15 | XMS_ITS | Encounter Summary ---
Author Organization [facility] Address [address] [place] [address] Care Team Providers Care Clinical Program Director Name Role Phone Elsewhere, Pcp Primary Care Provider Unavailabl e Reason for Visit * Outpatient (Routine) - Authorized Specialty Diagnoses / Procedures Referred By Contmagda t Referred To Contact Diagnoses Pain Chronic Due To Trauma Peripheral Vascular Disease Lumbago With Sciatica Left Side Procedures [facility] Acupuncture Integrative Medicine and Health in [place], [place] [address] [place] [address] Phone: tel: [facility] Referral ID Status Reason Start Date Expiration Date V isits Requested Visits Authorized [id number] Authorized 12/29/2024 03/31/2026 19 19 Encounter Details Date Type Department Care Team (Latest Contact Info) Description 04/14/2025 11:15 AM CDT Clinical Support Integrative Medicine and Health in [place], [place] [address] [place] [address] Ishaan Edwards, L.Ac. Pain Chronic Due To [...] things needed for daily living? No 03/15/2025 [facility] Utilities Answer Date Recorded In the past 12 months has th e electric, gas, oil, or water company threatened to shut off services in your home? No 03/15/2025 Housing Stability Answer Date Recorded What is your living situation today? 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 - 04/14/2025 11:15 AM CDT INDIVIDUAL ACUPUNCTURE TREATMENT Referral Source: No ref. provider found Supervised by: [place] [id number] SUBJECTIVE Chief Complaint: Pain History of Present Illness Mr. Resendiz is a 75 y.o. male referred for evaluation and consideration of acupuncture treatment.Mr. Resendiz is seen in the outpatient setting. Their medical history is well documented, and relevant portions were reviewed and discussed at today's session. Follow-up Acupuncture Treatment 04/14/25 Ezequiel reports he thinks he's gradually able to wear his prosthetic for longer amounts oftime. Yesterday he cut his grass, needed to pause 3 times instead of 5 times as he was used to doing previously. We'll continue treating for left leg pain inferior to the knee in the area covered by the prosthetic leg. Previous Treatment: 04/07/25 Ezequiel reports he hasn't noticed significant [...] in right leg inferior to the knee. ASSESSMENT / PLAN #1 Pain Chronic Due To Trauma #2 Peripheral Vascular Disease #3 Lumbago With Sciatica Left Side This is treatment 5 of expected 20 treatments. Frequency: Acupuncture ordered [...] SP 9, SP 8, ST 36, ST 37, GB 34 Set Two: Right ST 36, ST 37, LV 7, SP 6, LV 3 Other: [place] Electrified: No Notes: Stimulation Intensity: Medium Needle Size: 0.20mm Adjunct Therapies Diathermy: BIOMAX 450 LED - RED+ 10%, AYLEEN 100%, Blue on Cupping: No Other: [place] Used: 14 [place] Retrieved: 14 All needles used were retrieved and accounted [...] and the www.NCCAOM.org for locating a qualified clinic licensed practical nurse in the local community. PATIENT EDUCATION Patient [...] Clinical Support Integrative Medicine and Health in [place], [place] [address] [place] [address] Vira Lutz L.Ac. 06/29/2025 1:00 PM WALLPAPER INSPECTOR AND SHIPPER Office Visit Department of Vascular Medicine in [place], [place] [address] [place] [address] Sal Lenz M.D. [address] [place] [address] Discharge Disposition: Home or Self Care documented as of this encounter Visit Diagnoses Diagnosis Pain Chronic Due To Trauma Peripheral Vascular Disease Lumbago With Sciatica Left Side documented in this encounter Care Teams Clinical Program Director Relationship Specialty Start Date End Date Elsewhere, Pcp PCP - General Internal Medicine 07/11/23 documented as of this encounter
--- OUTSIDE RECORDS SUMMARY | 2025-04-22 16:00 | XMS_ITS | Encounter Summary ---
Author Organization [facility] Address [address] [place] [address] Care Team Providers Care Tax Examining Technician Name Role Phone Elsewhere, Pcp Primary Care Provider Unavailabl e Reason for Visit * Outpatient (Routine) - Authorized Specialty Diagnoses / Procedures Referred By Marylou oneal Referred To Contact Diagnoses Pain Chronic Due To Trauma Peripheral Vascular Disease Lumbago With Sciatica Left Side Procedures [facility] Acupuncture Integrative Medicine and Health in [place], [place] [address] [place] [address] Phone: tel: [facility] Referral ID Status Reason Start Date Expiration Date V isits Requested Visits Authorized [id number] Authorized 12/29/2024 03/31/2026 19 19 Encounter Details Date Type Department Care Team (Latest Contact Info) Description 04/22/2025 4:00 PM CDT Clinical Support Integrative Medicine and Health in [place], [place] [address] [place] [address] Vira Lutz, L.Ac. Pain Chronic Due To [...] things needed for daily living? No 03/15/2025 [facility] Utilities Answer Date Recorded In the past 12 months has th e electric, gas, oil, or water company threatened to shut off services in your home? No 03/15/2025 Housing Stability Answer Date Recorded What is your living situation today? 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 - 04/22/2025 4:00 PM CDT Individual Acupuncture Setting Supervised by: [place] [id number] This is treatment 6 of 20 Individual Setting SUBJECTIVE Chief Complaint: Pain History of Present Illness Mr. Resendiz is a 75 y.o. male referred for evaluation and consideration of acupuncture treatment.Mr. Resendiz is seen in the outpatient setting. Their medical history is well documented and relevant portions were reviewed and discussed at today's session. Follow Up Acu Treatment 04/22/25 Pt reports having some good days, some not so good days. Pain is dependent on activity. ASSESSMENT / PLAN #1 Pain Chronic Due [...] to obtain symptom relief. Acupuncture Points Used: Prone Head: N/A Auricular: N/A Set One: ST36, GB34, LV8, He Ding, Lety Benjamin, SP10, ST34, Set Two: SP9, SP8, Stimulation Intensity: Medium (Muscle Fasciculation) Needle Size: Blue Seirins [place] Electrified: No Adjunct Therapies Applied: Infrared Heat: Yes Topicals: No Tuina: No Cupping: No GuaSha: No Patches: No [place] Used: 20 [place] Retrieved: 20 Total Needling Time: 30 minutes PPE used [...] resources, including NCCAOM.org, to locate a licensed nuclear control room operator in their local community. To schedule acupuncture at [facility], book online here: [facility] at [facility] Patient Education: Patient was ready to [...] Clinical Support [facility]ative Medicine and Health in [place], [place] [address] [place] [address] Vira Lutz L.Ac. 06/29/2025 1:00 PM MANAGER BENCH Office Visit Department of Vascular Medicine in [place], [place] [address] [place] [address] Sal Lenz M.D. [address] [place] [address] Discharge Disposition: Home or Self Care documented as of this encounter Visit Diagnoses Diagnosis Pain Chronic Due To Trauma Peripheral Vascular Disease Lumbago With Sciatica Left Side documented in this encounter Care Teams Tax Examining Technician Relationship Specialty Start Date End Date Elsewhere, Pcp PCP - General Internal Medicine 07/11/23 documented as of this encounter
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
--- OUTSIDE RECORDS SUMMARY | 2025-04-28 13:37 | XMS_ITS | Clinical Summary ---
Author Organization [facility] Address [address] [place] [id number] Care Team Providers Care Direct Marketing Coordinator Name Role Phone Elsewhere, Pcp Primary Care Provider Unavailabl e Source Comments Patient records contain information from all sites at [facility]. For routine questions regarding patient records, call [phone] during business hours, M-F 8:00 AM - 5:00 PM Central Time. Record requests for emergency care only can be directed to [phone] at any time.[facility] Allergies Active Allergy Reactions Criticality Noted Date Comments Bee Venom Protein (Honey Bee) Swelling 02/24/2012 Cefazolin Rash 10/20/2012 itching Metronidazole Other (see comments) 10/30/2012 Cholestatic Jaundice Medications chlorhexidine (HIBICLENS) 4 % external solution Apply 1 application topically as needed (As needed for folliculitis). 120 mL 0 Active Additional Information Patient not taking.Reported on 03/19/2025 acetaminophen (Tylenol Extra Strength) 500 mg tablet [...] Take 1 tablet by mouth daily. Active cholecalciferol (Vitamin D3) 50 mcg (2,000 Unit) tablet Take 50 mcg by mouth daily. Active B complex-vitamin (Super B-50) capsule Take 1 capsule by mouth daily. Active aspirin 81 mg chewable tablet Chew 81 mg daily. Active clopidogreL (Plavix) 75 mg tablet Take 75 mg by mouth daily. Active lisinopriL 2.5 mg tablet Take 2.5 mg by mouth daily. Active rosuvastatin (Crestor) 20 mg tablet Take 20 mg by mouth at bedtime. Active Active Problems Problem Noted Date Diagnosed Date Edema 06/30/2024 Pain In Left Lower Leg 06/30/2024 Peripheral Vascular Disease 06/30/2024 Atherosclerosis Of [place] Ar teries Of Extremities With Intermittent Claudication Left Leg 07/15/2023 Amputation Leg Below Knee Status Post Left 02/23 Encounters Date Type Department Care Team Description 04/22/2025 4:00 PM CDT Clinical Support [facility] in [address] [address] Vira Otero, L.Ac. Pain Chronic Due To Trauma; Peripheral Vascular Disease; Lumbago With Sciatica Left Side 04/14/2025 11:15 AM CDT Clinical Support [facility] in [address] [address] Ishaan Edwards, L.Ac. Pain Chronic Due To Trauma; Peripheral Vascular Disease; Lumbago With Sciatica Left Side 2025 2:00 PM CDT Clinical Support [facility] in [address] [address] Ishaan Edwards, L.Ac. Pain Chronic Due To Trauma; Peripheral Vascular Disease; Lumbago With Sciatica Left Side 03/25/2025 10:45 AM CDT Clinical Support [facility] in [address] [address] Vira Otero, L.Ac. Pain Chronic Due To Trauma; Peripheral Vascular Disease; Lumbago With Sciatica Left Side 03/19/2025 4:00 PM CDT Clinical Support [facility] in [facility] a [address] [place] [address] Ishaan Edwards L.Ac. Pain Chronic Due To Trauma; Peripheral Vascular Disease; Lumbago With Sciatica Left Side 03/19/2025 11:30 AM CDT Office Visit Department of Vascular Medicine in [place], [place] [address] [place] [address] Sal Lenz M.D. Atherosclerosis Of [place] Arteries Of Extremities With Intermittent Claudication Left Leg (Primary Dx); Amputation Leg Below Knee Status Post Left (HCC); Pain In Left Lower Leg Discharge Disposition: Home or Self Care 03/19/2025 11:25 AM CDT Ancillary Procedure Department of Vascular 02/18/2025 11:00 AM CDT Virtual Visit Department of Vascular Medicine in [place], [place] [address] [place] [address] Sal Lenz M.D. Pain In Left Lower Leg (Primary Dx); Amputation Leg Below Knee Status Post Left (HCC); Edema Discharge Disposition: Home or Self Care from Last 3 Months Social History Tobacco Use Types Packs/Day Years Used Date Smoking Tobacco: Never Smokeless Tobacco: Never Tobacco Cessation:Counseling Given: Not Answered Hunger Vital Sign Answer Date Recorded Within [...] needed for daily living? No 03/15/2025 [facility] Utilities Answer Date Recorded In the past 12 months has [employer] electric, gas, oil, or water company threatened to shut off services in your home? No 03/15/2025 Housing Stability Answer Date Recorded What is your living situation today? I have a [facility] place to live 03/15/2025 Sex and Gender Information Value Date Recorded Sex Assigned at Male 11/07/2023 10:52 AM CDT Legal Sex Male 4:31 PM [employer] [facility] Gender Identity Male 11/07/2023 10:52 AM CDT Sexual Orientation Straight 11/07/2023 10 :52 AM CDT Last Filed Vital Signs Vital Sign Reading Time Taken Comments Blood Pressure 102/67 03/19/2025 11:19 AM CDT Pulse 61 03/19/2025 11:19 AM CDT Temperature 36.8 C (98.2 F) 08/10/2024 8:33 AM [employer] [facility] Respiratory Rate 16 01/10/2013 6:28 AM CDT Oxygen Saturation - - Inhaled Oxygen Concentration - - Weight 84 kg (185 lb 3 oz) 03/19/2025 11:17 AM C DT Height 177.2 cm (5' 9.76) 03/19/2025 11:17 AM C DT Body Mass Index 26.75 03/19/2025 11:17 AM CDT Plan of Treatment Upcoming Encounters Date Type Department Care Team (Latest Contact Info) Description 04/29/2025 2:00 PM CDT Clinical Support [facility] in [place], [place] [address] [place] [address] Vira Lutz L.Ac. 06/29/2025 1:00 PM [employer] [facility] Office Visit Department of Vascular Medicine in [place], [place] [address] [place] [address] Sal Lenz M.D. [address] [place] [address] Discharge Disposition: Home or Self Care Health Maintenance Due Date Last Done Comments Office Visit for Blood Pressure Check / Re-check 1950 Pneumococcal vaccine (50+ years) (1 of 1 - PCV) 1999 Zoster Vaccines (1 of 2) 1999 DTaP,Tdap,and Td Vaccines (3 - Td or Tdap) 02/22/2022 02/23/2012, 11/03/2010 RSV vaccine - (32-36 weeks) or 60+ years (1 - 1-dose 75+ series) 2024 Depression Screening (Annual PHQ-2) 07/29/2024 Fall Risk Screen (Annual) 07/29/2024 COVID-19 Vaccine ( - season) 2025 12/08/2020, 11/17/2020 Influenza Vaccine (#1) 2025 Sodium Level 12/31/2025 12/31/2024, 12/2023, 08/06/2023, Additional history exists Creatinine Level (Kidney Function Test) 01/02/2026 01/02/2025, 12/31/2024, 06/30/2024, Additional history exists Potassium Level 01/02/2026 01/02/2025, 12/2024, 12/31/2024, Additional history exists Abdominal Aortic Aneurysm (AAA) Screen Discontinued 10/27/2012, 02/23/2012 Hepatitis B Screening Discontinued 10/27/2012 Colonoscopy Discontinued 08/13/2023, 07/2010 (Performed elsewhere) Colorectal Cancer Screening Discontinued Colorectal Cancer Surveillance Discontinued CT Colonography Discontinued CT Colonography Discontinued Cologuard Discontinued FIT Discontinued IPV Vaccines Aged Out No longer eligi ble based on patient's age to complete this topic Medical Devices Implanted Type Area Wet Char Conveyor Tender Device Identifier Shelf Expiration Date Model / Serial / Lot Hardware E.G. Pins/Screws/Rods Hardware e.g. pins/screws/ rods Left: Femur Description:Steel julianne left f emur Syn. Screw Lck Stardrive 5.0x34 - [place] [id number] Implanted:Qty: 1 on 02/23/2012 Hardware e.g. pins/screws/ rods Depuy Synthes Description:Device Manufactu rer - Nimble TV. Device Status Text - [id number]. Guide Wire-Synthes 2.5 X 950 - [place] [id number] Implanted:Qty: 1 on 02/23/2012 Hardware e.g. pins/screws/ rods Depuy Synthes Description:Device Manufactu rer - Synthes. Device Status Text - HARDWARE-92430. Syn. Screw Lck Stardrive 5.0x48 - [place] [id number] Implanted:Qty: 1 on 02/23/2012 Hardware e.g. pins/screws/ rods Depuy Synthes Description:Device Manufactu rer - Synthes. Device Status Text - [id number]. Syn. Screw Lck Stardrive 5.0x54 - [place] [id number] Implanted:Qty: 1 on 02/23/2012 Hardware e.g. pins/screws/ rods Depuy Synthes Description:Device Manufactu rer - Synthes. Device Status Text - HARDWARE-85748. Syn Sleeve Outer Protection 12.0 Mm - [place] [id number] Implanted:Qty: 1 on 02/23/2012 Hardware e.g. pins/screws/ rods Depuy Synthes Description:Device Manufactu rer - Synthes. Device Status Text - [id number]. Syn. Screw Lck Stardrive 5.0x46 - [place] [id number] Implanted:Qty: 2 on 02/23/2012 Hardware e.g. pins/screws/ rods Depuy Synthes Description:Device Manufactu rer - Synthes. Device Status Text - HARDWARE-29134. Syn. Screw Lck Stardrive 5.0x50 - [place] [id number] Implanted:Qty: 1 on 02/23/2012 Hardware e.g. pins/screws/ rods Depuy Synthes Description:Device Manufactu rer - Synthes. Device Status Text - HARDWARE-37429. Guide Wire-Synthes 3.2 X 400 - [place] [id number] Implanted:Qty: 2 on 02/23/2012 Hardware e.g. pins/screws/ rods Depuy Synthes Description:Device Manufactu rer - Synthes. Device Status Text - HARDWARE-27217. Guide Wire-Synthes Ball Tip 2.5 X 950 - [place] [id number] Implanted:Qty: 1 on 02/23/2012 Hardware e.g. pins/screws/ rods Depuy Synthes Description:Device Manufactu rer - Synthes. Device Status Text - HARDWARE-43207. Syn. Screw Lck Stardrive 5.0x40 - [place] [id number] Implanted:Qty: 1 on 02/23/2012 Hardware e.g. pins/screws/ rods Depuy Synthes Description:Device Manufactu rer - Synthes. Device Status Text - HARDWARE-72024. Syn.Tibial Nail-Ex Sandy 01f082oo W Bend - [place] [id number] Implanted:Qty: 1 on 02/23/2012 Hardware e.g. pins/screws/ rods Depuy Synthes Description:Device Manufactu rer - Synthes. Device Status Text - [id number]. K-Wire Smooth S.S. Single 9 .062 - [place] [id number] Implanted:Qty: 4 on 02/23/2012 Hardware e.g. pins/screws/ rods Nicole Description:Device Manufactu rer - Nicole Mason.. Device Status Text - HARDWARE-9295. Screw-Asnad Delgado F Thrd 5 X 55mm - [place] [id number] Implanted:Qty: 1 on 02/27/2012 Hardware e.g. pins/screws/ rods [place] Description:Device Manufactu rer - Nicole Mason.. Device Status Text - HARDWARE-[id number]. Screw-Asnad Delgado P Thrd 5 X 75mm - [place] [id number] Implanted:Qty: 1 on 02/27/2012 Hardware e.g. pins/screws/ rods [place] Description:Device Manufactu rer - [place] Mason.. Device Status Text - HARDWARE-[id number]. Screw-Asnad Delgado P Thrd 5 X 70mm - [place] [id number] Implanted:Qty: 2 on 02/27/2012 Hardware e.g. pins/screws/ rods Nicole Description:Device Manufactu rer - Nicole Mason.. Device Status Text - HARDWARE-104904. Screw-Asnis Sandy P Thrd 5 X 50mm - [place] [id number] Implanted:Qty: 1 on 02/27/2012 Hardware e.g. pins/screws/ rods [place] Description:Device Manufactu rer - [place] Mason.. Device Status Text - HARDWARE-[id number]. Guide Wire-Asnis 2.0 X 150mm - [place] [id number] Implanted:Qty: 5 on 02/27/2012 Hardware e.g. pins/screws/ rods [place] Description:Device Manufactu rer - [place]. Device Status Text - [id number]. Screw-Asnis Sandy F Thrd 5 X 70mm - [place] [id number] Implanted:Qty: 1 on 02/27/2012 Hardware e.g. pins/screws/ rods Nicole Description:Device Manufactu rer - [place] Mason.. Device Status Text - HARDWARE-[id number]. Guide Wire-Asnis Smooth 2.0 X 150mm - [place] [id number] Implanted:Qty: 1 on 09/16/2012 Hardware e.g. pins/screws/ rods Nicole Description:Device Manufactu rer - Nicole Mason.. Device Status Text - HARDWARE-[id number]. Ocular Lens-12/27/2017 Implanted:2017 (Quantity not on file) Ocular Lens Bilatera l: Eye Procedures Procedure Name Priority Date/Time Associated Diagnosis Comments VASCULAR IMAGE EXAM Routine 03/19/2025 1 1:25 AM CDT CREATININE WITH EGFR, S/P Routine 06/30/2024 9:11 AM [employer] [facility] Amputation Leg Below Knee Status Post Left (HCC) Atherosclerosis Of [place] Arteries Of Extremities With Intermittent Claudication Left Leg (HCC) ELECTROLYTE (CHEM 4) PANEL, S/P Routine 01/08/2013 5:32 AM CDT HEPATITIS B SURFACE ANTIGEN Routine 10/27/2012 10:16 PM CDT US ABDOMEN LIMITED Routine 10/27/2012 4: 21 PM CDT from Last 3 Months or Most Recently Relevant to Health Maintenance Results * Leg-Vascular Image Exam (03/19/2025 11:25 AM CDT) 03/19/2025 11:2 5 AM CDT Narrative IIMS - 03/19/2025 11:27 AM CDT This order has been created and auto-finalized to support the import of images acquired without order. The clinical documentation to support these images can be found on the encounter that produced images. us Provider Not In System IMG NON RAD IMAGING PROCE SUMI Final Result IIMS NA * Creatinine with Estimated GFR (06/30/2024 9:11 AM [employer] [facility]EW[facility]) Creatinine 1.18 0.74 - 1.35 mg/dL 06/30/2024 10:10 AM [employer] [facility]EWEL DTL Estimated GFR (eGFR) 64 >=60 mL/min/BSA 06/30/2024 10:10 AM [employer] DTL Comment: Estimated GFR calculated using the 2020 CKD_EPI creatinine equation. Blood (Blood, Venous) 06/30/2024 9:11 AM [employer] [facility]EWEL 06/30/2024 9:48 AM [employer] [facility] Sal Lenz M.D. LAB BLOOD ADD-ON Final Resu lt [facility] [address] DTL [facility] [address] [place] [address] * Electrolyte (Chem 4) Panel (01/08/2013 5:32 AM CDT) Sodium, S 140 135 - 145 MMOL/L [facility] Potassium, S 4.2 3.6 - 5.2 MMOL/L [facility] Creatinine 1.0 0.8 - 1.3 MG/DL [facility] eGFR Non-Black/Afric an Dominican >60 >60 ML/MIN/BSA [facility] eGFR-Black/Afri can Dominican >60 >60 ML/MIN/BSA [facility] BUN (Blood Urea Nitrogen), S 14 8 - 24 MG/DL [facility] Chloride, S 104 100 - 108 MMOL/L [facility] HX Bicarbonate, P/S 25 22 - 29 MMOL/L [facility] Anion Gap 11 7 - 15 [facility] Glucose, S 90 70 - 140 MG/DL [facility] 01/08/2013 5:32 AM CDT 01/08/2013 5:32 AM CDT Trino Martin III, M.D. LAB BLOOD ADD-ON Final Result [facility] [address] * Hepatitis B Surface Antigen (10/27/2012 10:16 PM CDT) HBs Antigen, S Negative Negative [facility] 10/27/2012 10:1 6 PM CDT 10/27/2012 10:16 PM CDT us Historical Provider LAB MICROBIOLOGY - BLOOD ORD ERABLES Final Result [facility] [address] [place] [address], [facility] * US Abdomen Limited (10/27/2012 4:21 PM [...] to Harlan Nielsen in the ED at [phone] at 4:30 p.m. on 10/27/2012. Electronically signed by: Vijaya Choi MD [phone] 27-Oct-2012 16:38 DMike Gray MD [phone] 27-Oct-2012 16:38 Procedure Note Sania Choi M.D. [...] to Harlan Nielsen in the ED at [phone] at 4:30 p.m. on10/27/2012. Electronically signed by: Vijaya Choi MD [phone] 27-Oct-2012 16:38 Henrry Gray MD [id number] 16:38 Maria L ADAMS, PTracey, M.S. [facility] [place] OCEDURES Final Result from Last 3 Months or Most Recently Relevant to Health Maintenance Insurance [facility] Care Teams Direct Marketing Coordinator Relationship Specialty Start Date End Date Elsewhere, Pcp PCP - General Internal Medicine 07/11/23
[2025-04-28 13:39] VITALS: BP 130/86; PULSE 64; RESP 18; TEMP 36.2; O2SAT 97; BMI 26.7
--- NOTE | 2025-04-28 14:29 | ED.GENADULT ---
HPI - General Adult General Date Seen: 04/28/25 Chief complaint: Laceration/Wound Stated complaint: R hand lac Time Seen by Provider: 04/28/25 13:36 History of Present Illness HPI narrative: Patient is a 75-year-old gentleman who was using a band saw to cut some steel pipe today. He was holding the pipe in his hand and cut his right index finger. He has no complaints of numbness or loss of function. He says his last tetanus was a long time ago and he does need that updated. No other injuries or complaints. Related Data Home Medications ?Medication ?Instructions ?Recorded ?Confirmed losartan 50 mg-hydrochlorothiazide 1 tab PO DAILY 12/30/24 04/28/25 12.5 mg tablet rosuvastatin 10 mg tablet 10 mg PO QPM 04/28/25 04/28/25 Allergies Allergy/AdvReac Type Severity Reaction Status Date / Time cefazolin AdvReac Intermediate Verified 04/28/25 13:43 metronidazole AdvReac Intermediate Verified 04/28/25 13:43 [facility] Medical History Basal cell carcinoma ?C44.91 - Basal cell carcinoma of skin, unspecified (ICD-10) Cataract ?H26.9 - Unspecified cataract (ICD-10) Hypertension ?I10 - Essential (primary) hypertension (ICD-10) Surgical History S/P BKA (below knee amputation) unilateral ?Z89.519 - Acquired absence of unspecified leg below knee (ICD-10) History of left below knee amputation ?Z89.512 - Acquired absence of left leg below knee (ICD-10) Social History Narrative: Patient denies smoking. He lives with his daughter and her family. Highest level of school completed/degree received: Associate degree: occupational, technical, vocational program Smoking Status: Never smoker Do you use any of these nicotine containing products: None Second hand tobacco smoke exposure: Yes (year ) How often do you have a drink containing alcohol: 2-3 times a week Alcohol type: beer, wine and hard liquor How often do you have six or more drinks on one occasion: Never AUDIT-C Alcohol total score: 3 Non-prescribed substance use: denies use Caffeine: Yes (ice tea) service: Yes Exam Narrative: Exam Narrative: Vital signs reviewed In general, alert, well-appearing elderly male. Extremities: Examination of the right index finger shows a 3 cm laceration just proximal to the PIP joint. He has full flexion and extension against resistance of the PIP and PIP joints of the index finger. Sensation is intact to light touch. Bleeding is controlled. Const: Vital Signs, click to edit/add: Vital Signs - 24 hr 04/28/25 13:39 Temperature 97.1 F L Pulse Rate [Right Pulse Oximeter] 64 Respiratory Rate 18 Blood Pressure [Ri ght Upper Arm] 130/86 Pulse Oximetry 97 Oxygen Delivery Me thod Room Air Course Course ED Course: Procedure note: Wound was anesthetized using lidocaine with epinephrine with a digital block. Wound was explored, it does extend down to the tendon and this sheath is partially torn but the tendon itself appears intact. No evidence of foreign body. Wound was closed using 5 0 nylon, a total of 7 simple interrupted superficial sutures were placed. Total wound length approximately 3 cm. 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 Routine wound i care, return for signs of infection. Suture removal in about 10 days. Dressing and splint applied by biological science technician. Tetanus updated. Vital Signs Vital signs: Initial Vital Signs Temperature 97.1 F L 04/28/25 13:39 Temperature Source Temporal Artery Scan 04/28/25 13:39 Pulse Rate 64 04/28/25 13:39 Pulse Rhythm Regular 04/28/25 13:39 Pulse Strength 3+ Normal 04/28/25 13:39 Respiratory Rate 18 04/28/25 13:39 Blood Pressure 130/86 04/28/25 13:39 Blood Pressure Mean 100 04/28/25 13:39 Blood Pressure Position Sitting 04/28/25 13:39 Pulse Oximetry 97 04/28/25 13:39 Oxygen Delivery Method Room Air 04/28/25 13:39 Vital Signs Temperature 97.1 F L 04/28/25 13:39 Pulse Rate 64 04/28/25 13:39 Respiratory Rate 18 04/28/25 13:39 Blood Pressure 130/86 04/28/25 13:39 Pulse Oximetry 97 04/28/25 13:39 Oxygen Delivery Method Room Air 04/28/25 13:39 Temperature 97.1 F L 04/28/25 13:39 Pulse Rate 64 04/28/25 13:39 Respiratory Rate 18 04/28/25 13:39 Blood Pressure 130/86 04/28/25 13:39 Pulse Oximetry 97 04/28/25 13:39 Oxygen Delivery Method Room Air 04/28/25 13:39 Medications Administered Medications: Discontinued Medications Generic Name Dose Route Start Last Admin Trade Name Freq PRN Reason Stop Dose Admin Diphtheria/Tetanus/Acell Pertussis 0.5 ml 04/28/25 14:00 04/28/25 14:49 Tetanus/Diphth/Pertussis 0.5 Ml Syringe IM 04/28/25 14:01 0.5 ml .ONCE ONE Administration Discharge Plan Discharge Clinical Impression: Finger laceration Qualifiers: Encounter type: initial encounter Finger: index finger Damage to nail status: without damage Foreign body presence: without foreign body Laterality: right Qualified Code(s): S61.210A - Laceration without foreign body of right index finger without damage to nail, initial encounter Patient Disposition: Home, Self-Care Condition: Improved Instructions: Finger Laceration (ED) Additional Instructions: Suture removal in about 10 days in clinic. Return any time for signs of infection. I would recommend leaving the splint on for the next couple of days, okay to remove at that time, keep wound clean and dry. Prescriptions: No Action rosuvastatin 10 mg tablet 10 mg PO QPM losartan-hydrochlorothiazide 50-12.5 mg tablet 1 tab PO DAILY Follow Up/Referrals: Juan C Tapia MD [Primary Care Provider, Family Practice] Stand Alone Forms: MyHealth Info Instructions
[2025-04-28] MEDS: TETANUS/DIPHTH/PERTUSSIS 0.5 ML SYRINGE IM (14:49)
== END 2025-04-28 14:55 | disposition home or self-care (01) ==
PROVIDERS: Emergency Provider Emergency Medicine; PCP Family Medicine
DX: S61.210A Laceration without foreign body of right index finger without damage to nail, initial encounter (principal); W31.2XXA Contact with powered woodworking and forming machines, initial encounter; Z23 Encounter for immunization
CPT/HCPCS: 12002; 90471; 90715; 99283